=== PATIENT | male | born 1955 | race Caucasian/White ===

== ENCOUNTER 2019-03-18 08:16 | Inpatient (IN) | payer MEDICARE, SELFPAY ==
[2019-03-03 08:43] VITALS: BMI 31.1
[2019-03-18] VITALS (11 sets, daily range): BP systolic 109–148; BP diastolic 66–95; PULSE 69–80; RESP 12–18; TEMP 36.1–36.7; O2SAT 92–98; BMI 31.1
--- NOTE | 2019-03-18 | DI.RAD.S_ITS ---
PROCEDURE: XR PELVIS 1-2V INDICATIONS: INNER OP PICTURE WITH NON FINAL HARDWARE TECHNIQUE: Intra-operative view of the pelvis and hip acquired. COMPARISON: [facility] [place], CR, XR PELVIS WITH BILATERAL LATERAL HIPS, 01/03/2019, 10:19. FINDINGS: Bones: Intraoperative devices prior to placement of arthroplasty prostheses are in expected positions. No fractures or suspicious bony lesions. Note is made of a right hip prosthesis. Soft tissues: Overlying surgical retractors are present, along with other intraoperative changes. IMPRESSION: Left hip arthroplasty. Dictated by: Lizet Damon M.D. on 03/18/2019 at 16:59 Approved by: Lizet Damon M.D. on 03/18/2019 at 17:00
--- NOTE | 2019-03-18 06:00 | DI.RAD.S_ITS ---
PROCEDURE: XR HIP W PEL IF DONE LT 2V INDICATIONS: post op films TECHNIQUE: AP pelvis and lateral view of the left hip acquired. COMPARISON: [facility] [place], CR, XR PELVIS WITH BILATERAL LATERAL HIPS, 01/03/2019, 10:19. [facility], CR, XR PELVIS 1-2V, 03/18/2019, 11:55. FINDINGS: Bones: Patient is status post left hip arthroplasty, with hardware components in expected positions. The hip joint appears congruent. The visualized bony structures appear intact. Previous right hip arthroplasty is stable in appearance. Soft tissues: Overlying postoperative changes are noted. No suspicious soft tissue densities. IMPRESSION: New left hip arthroplasty as above. Stable previous right hip arthroplasty. Dictated by: Antionette Lazaro M.D. on 03/18/2019 at 16:27 Approved by: Antionette Lazaro M.D. on 03/18/2019 at 16:28
[2019-03-18] MEDS: ACETAMINOPHEN 325 MG TABLET 975 MG PO ×2 (09:00→20:52)
[2019-03-18] MEDS: PREGABALIN 75 MG CAPSULE PO (09:01)
[2019-03-18] MEDS: CELECOXIB 200 MG CAPSULE PO (09:01)
[2019-03-18] MEDS: VANCOMYCIN 1,000 MG/200 ML FROZ.PIGGY 200 MG IV (09:10)
--- NOTE | 2019-03-18 09:53 | PM.PREOP ---
Pre-operative Note Interval Note History & Physical reviewed/Exam performed by Physician: Yes Changes to H&P: No
--- NOTE | 2019-03-18 10:01 | P.OP_ITS ---
Operative Date/Time/Diagnoses Date of procedure: 03/18/19 Time of procedure: 10:45 Pre-op diagnosis: Left hip osteoarthritis with avascular necrosis Post-op diagnosis: same Procedure & Clinicians Procedure: Left total hip arthroplasty Same procedure as scheduled: Yes Indications: The patient has had progressively worsening left hip pain with radiographic changes consistent with arthritis. Non-operative management has failed and the patient has requested total hip replacement. The risks, benefits and alternatives to surgery were discussed with the patient prior to proceeding. Risks discussed included, but were not limited to, failure to relieve pain, leg length discrepancy, dislocation, stiffness, infection, nerve damage, deep venous thrombosis, pulmonary embolism, stroke, coma, heart attack, permanent paralysis and , as well as the potential need for eventual revision of the prosthetic. Surgeon: Tracy Barrientos Principal Solutions Architect: Indy Villa Anesthesia Type: General and Spinal Operative Notes Findings: Severe left hip osteoarthritis with marked avascular necrosis and softening of the acetabulum, adequate stability Closure Type: primary Specimen(s): none sent Prosthetic devices, grafts, tissues, transplants, or devices: Barrientos [employer] Nephew anthology size 7 standard offset, R3 52 cup,52 by 36, +0 Applied: drain(s) Estimated Blood Loss (mL): 250 Blood products transfused: none Procedure in detail: The patient was seen in the pre-operative area, where the patient identified the left hip as the operative site and this was marked with my initials. The patient received pre-operative antibiotics and was taken to the operating room and placed on the operative table in the right lateral decubitus position after satisfactory anesthesia. A aircraft time clerk out was performed. The left leg was prepared from the ankle to the iliac crest with ChloroPrep in the usual fashion and draped through sterile drapes. The hip was approached through an approximately 20 cm incision centered over the greater trochanter and curving gently posteriorly as it went proximally. This was carried sharply to the fascia tashi, which was divided and retracted with a self retaining retractor. The trochanteric bursa was excised with care being taken to avoid the sciatic nerve, which was identified and protected throughout the case. The short external rotators were incised and the capsulomuscular flap was raised and tagged for later repair. The hip was dislocated, and a femoral neck osteotomy performed approximately 15 mm above the lesser trochanter. Retractors were placed around the femur. The canal was opened with a box cutting osteotome, followed by a T handled reamer and a lateralizing reamer. The chili pepper broach was then used, followed by sequential broaching until there was good stability of the broach in the femur. Retractors were placed to expose the acetabulum. The labrum and central soft tissues were removed. Reaming was performed initially going up in 2 mm incr ements, then 1 mm increments until good bite was obtained with an odd sized reamer. The cup 1 mm larger than the last reamer was then inserted using the appropriate anteversion guides. A trial neutral liner was placed. The broach was placed in the canal. A trial head and neck were then placed and the hip relocated and checked for leg length and stability. An intraoperative film confirmed the component position and no evidence of fracture. The patient was stable in the position of sleep, of squatting, and could be put through a range of motion with 45 degrees internal rotation without dislocation. At 90 degrees flexion, internal rotation to 70 was possible before dislocation. This was felt to be satisfactory and the appropriate components were opened, and the trials were removed. The acetabular liner was impacted into position. The final stem was then impacted into the prepared femoral canal. A brief Betadine soak was performed while trialing with head options. The hip was meticulously irrigated with normal saline. Finally the femoral head was impacted onto the stem. The acetabulum was cleared of all material and the hip relocated one final time. The capsulomuscular flap was then repaired to the greater trochanter though an awl hole using the tag sutures. The short external rotators were repaired with a nonabsorbable polyester. A deep drain was placed and brought out anteriorly. The fascia tashi was closed with Vicryl. The subcutaneous layer was closed with barbed sutures and SteriStrips. An Aquacel Ag dressing was applied and the patient was taken to recovery having tolerated the procedure well. Complications: none Condition: stable Disposition: Acute Care Plan for aftercare: The patient will be maintained on a standard total hip replacement protocol with weight bearing as tolerated and posterior hip precautions. The patient will receive Aspirin and sequential compression devices for DVT prophylaxis. The patient will be discharged home when safe for the home environment.
[2019-03-18] MEDS: LACTATED RINGERS 1,000 ML 42 ML IV ×2 (10:03→12:43)
[2019-03-18] MEDS: CLINDAMYCIN 900 MG/50 ML PIGGYBACK 50 MG IV (10:30)
[2019-03-18] MEDS: TRANEXAMIC ACID 1,000 MG VIAL 1000 MG INJ ×2 (10:45→12:20)
--- NOTE | 2019-03-18 11:08 | SUR.OPER ---
Lateral on padded OR bed. Gel axillary roll. Arms secured on padded armboard with pillow supporting top arm. Padded hip positioner braces x4 - anterior and posterior chest and pelvis. Additional gel pad used anterior pelvis. Gel pad under bottom leg from knee to foot and secured with tape over sheet.
[2019-03-18] MEDS: BUPIVACAINE LIPOSOME 266 MG/20 ML VIAL INJ (11:14)
[2019-03-18] MEDS: BUPIVACAINE 0.5% W/ EPI (PF) VIAL 30 ML INJ (11:15)
[2019-03-18] MEDS: POVIDONE-IODINE 15 ML, SODIUM CHLORIDE 0.9% 250 ML TOP (11:16)
--- NOTE | 2019-03-18 14:20 | PT.IIE ---
Current Diagnoses Unilateral primary osteoarthritis, left hip (03/18/19) Surgery Performed Operation Date: 03/18/19 10:30 Actual Procedures p Total Hip Arthroplasty-Posterior(Left) - Tracy Barrientos MD Surgical History (Last Updated 03/03/19 @ 08:49 by Deisy Lee RN) History of lumbar fusion (Acute 08/15/16) History of total right hip arthroplasty (Acute) Hx of arthroscopy of right knee (Acute) Hx of tonsillectomy (Acute) Medical History (Last Updated 03/03/19 @ 09:18 by Deisy Lee RN) Arthritis (Acute) Back pain (Acute) Bilateral hip pain (Acute) Former smoker (Acute) GERD (gastroesophageal reflux disease) (Acute) HLD (hyperlipidemia) (Acute) HTN (hypertension) (Acute) Kidney stone (Acute) Osteoarthritis (Acute) Right knee pain (Acute) Sciatica (Acute) Physical Therapy Inpatient Evaluation/Re-Eval M1 PT/OT-IP Prior Functional Status Start: 03/18/19 16:51 Freq: NEEDED Status: Active Protocol: Document 03/18/19 14:20 AB (Rec: 03/18/19 17:12 AB [id number]) Medical Review Prior Functional Status Medical History Reviewed Yes Communication able to make needs known Mobility and Gait pt stated that he is mod I with all mobilities and ambulation using SPC indoors/ outdoors Social History Household Members none Living Arrangements RV Number of Floors (Floors) One Floor Number of Stairs To Enter/Railing? pt will stay at his son's house: information taken is regarding son's home set up has 3 steps to enter with R rail ascending Home Environment Standard Height Toilet Walk in Shower Home Equipment Front Wheel Walker Straight Cane Hand Held Shower Additional Social History Comment pt will stay at son's house and his son or his son's fiance will assist pt. toilet has a safety frame M2 PT-IP Current Condition Start: 03/18/19 16:51 Freq: NEEDED Status: Active Protocol: Document 03/18/19 14:20 AB (Rec: 03/18/19 17:12 AB [id number]) Physical Therapy Current Condition Current Condition Evaluation Date 03/18/19 Treatment Diagnosis s/p L GENE posterior approach; difficulty in walking Onset Date 03/18/19 Precautions Posterior Hip Precautions No Hip Flexion > 90 degrees No Hip Internal Rotation No Hip Adduction Weight Bearing Status Weight Bearing Status Weight Bear as Tolerated M3 PT-IP Subjective Start: 03/18/19 16:51 Freq: NEEDED Status: Active Protocol: Document 03/18/19 14:20 AB (Rec: 03/18/19 17:12 AB [id number]) Subjective Physical Therapy Visit Type Type Initial Evaluation Visit Start Time 14:20 Visit Stop Time 14:59 Total Visit Minutes 39 Number of BUSINESS PLANNING MANAGER Visits 0 Physical Therapy Visit Comments Patient Comments pt agreeable to do PT Therapy Pain Assessment Pain Present Pain Present Denied Pain M4 PT-IP Mobility and Gait Start: 03/18/19 16:51 Freq: NEEDED Status: Active Protocol: Document 03/18/19 14:20 AB (Rec: 03/18/19 17:12 AB [id number]) PT-Bed Mobility Assessment Supine to Sit Supine to Sit Standby Assistance Sit to Supine Sit to Supine Standby Assistance PT-Transfer Assessment Sit to and From Stand Sit to and from Stand Contact Guard Assistance Equipment Transfer Assistive Device Gait Belt Front Wheeled Walker Orthotic/Prosthetic Devices or Brace: No Gait Assessment Gait Gait Assistance Required: Contact Guard Assist Distance (Feet) 10 Able to Maintain Weight Bearing Status Yes During Gait Assistive Devices Assistive Device Gait Belt Front Wheeled Walker Orthotic/Prosthetic Devices or Brace: No Gait Deviations General Gait Pattern Antalgic Decreased Stride Length Decreased Feet Clearance Factors Limiting Gait Function Factors Limiting Gait Function Decreased Activity Tolerance Decreased Strength Poor Balance Comments Gait Comments c/o dizziness: BP 109/69 PT-Balance Assessment Sitting Balance and Reactions Static Sitting Balance Ability Good Dynamic Sitting Balance Ability Good Standing Balance and Reactions Static Standing Balance Ability Fair Dynamic Standing Balance Ability Fair Device Used FWW M5 PT-IP Objective Assessments Start: 03/18/19 16:51 Freq: NEEDED Status: Active Protocol: Document 03/18/19 14:20 AB (Rec: 03/18/19 17:12 AB [id number]) Orientation Orientation/Cognition Level of Alertness Alert Orientation Name Age Place Situation Language Function Ability No Deficits Noted Safety Awareness Understands Safety Issues Memory Description Short Term Impaired Gross Range of Motion Lower Extremity ROM Assessment Within Functional Limits Strength Lower Extremity Strength Assessment Left Impaired Hip 3+/5 Knee 3+/5 Sensation Assessment Sensation Gross Sensation Right LE Impaired Sensation Description Numbness Muscle Tone Muscle Tone WNL Yes M6 PT-IP Treatment Start: 03/18/19 16:51 Freq: NEEDED Status: Active Protocol: Document 03/18/19 14:20 AB (Rec: 03/18/19 17:12 AB [id number]) Physical Therapy Treatment Education Education Provided Precautions Weight Bearing Status Post-Op Packet Safety M7 PT-IP Assessment and Plan Start: 03/18/19 16:51 Freq: NEEDED Status: Active Protocol: Document 03/18/19 14:20 AB (Rec: 03/18/19 17:12 AB [id number]) PT Summary Assessment and Plan Potential Rehabilitation Potential Good Status of Condition at Evaluation Stable Summary Impairments Pain ROM Strength Balance Coordination Sensation Tone Cognition Bed Mobility Transfers Gait Activity Tolerance Assessment Summary pt requiring CGA with mobility . unable to do much ambulation due to lightheadedness/dizziness but able to walk ~ 10 ft in room. pt also still has decrease sensation on LLE. pt plans to go home to his son's house. pt stated that he is set up for outpt PT. Goals Bed Mobility Goal Independent Transfer Goal Independent Front Wheeled Walker Gait Goal Independent Front Wheel Walker Gait Distance 200 Other Goals up/down 3 steps with R rail ascending Days to Meet Goals 3 Frequency of Treatment Frequency Of Treatment Twice a Day Treatment Plan Physical Therapy Treatment Plan Bed Mobility Training Transfer Training Gait Training Therapeutic Exercise Balance Retraining Post Op Education Discharge Planning Hot or Cold Pack Neuromuscular Re-ed Coordination Retraining Manual Therapy Other Recommendations and Next Treatment ambulation, stair climbing Focus Recommendations To Nursing Amount of Assist Needed 1 Person Assist Discharge Recommendations PT Discharge Recommendations Home with Assistance Outpatient PT
[2019-03-18] MEDS: LACTATED RINGERS 1,000 ML 125 ML IV ×2 (14:21→20:59)
--- NOTE | 2019-03-18 15:36 | PC.NURSE ---
Post-op: Late entry Arrived to room 216 at 1345. Wide awake and alert, oriented X3. Denied pain, and is beginning to get feeling and movement back to BLE's. Strong pedal pulses, feet warm and pink, cap refill <2 sec. Dressing to L hip C/D/I. Hemovac patent to compression w/ scant sanguinous drainage. IVF per orders, site in R hand WNL. Oriented to room and call light, encouraged to make needs known. Fall precautions in place.
--- NOTE | 2019-03-18 16:47 | PC.NURSE ---
Addendum entered by Jennifer Ramos R.N. 03/18/19 21:52: Pt ambulated in hallway w/staff w/o incidence. Dsg CDI. IVF continue as per orders. Denies any discomfort. Satisfactory post op course. Call light w/in reach/ bed alarm on for pt safety. Continue with plan of care. Original Note: Pt awake, visiting. Denies any discomfort. Lungs clear, SpO2 98% RA. IV LR @ 125cc/hr infusing via pump into right hand w/o incidence. Left hip dsg CDI, ice applied. Call light w/in reach, bed alarm on for pt safety.
[2019-03-18] MEDS: ATENOLOL 50 MG TABLET PO (20:53)
[2019-03-18] MEDS: ASPIRIN EC 81 MG TABLET PO (20:53)
[2019-03-18] MEDS: MELOXICAM 7.5 MG TABLET 15 MG PO (20:54)
[2019-03-18] MEDS: PANTOPRAZOLE 20 MG TABLET PO (20:55)
[2019-03-18] MEDS: LOVASTATIN 20 MG TABLET PO (21:02)
[2019-03-19] VITALS: BP 113/75; PULSE 71; RESP 16; TEMP 36.6; O2SAT 96
[2019-03-19 04:38] VITALS: BP 128/78; PULSE 69; RESP 16; TEMP 36.6; O2SAT 97
[2019-03-19] MEDS: LACTATED RINGERS 1,000 ML 125 ML IV (05:51)
[2019-03-19 06:02] LABS: Hematocrit 37.6 % (41-53); Hemoglobin 12.9 g/dL (13.5-17.5)
[2019-03-19 08:58] VITALS: BP 115/62; PULSE 71; RESP 18; TEMP 36.6; O2SAT 94
--- NOTE | 2019-03-19 09:11 | P.DS_ITS ---
History of Present Illness Date Patient Seen: 03/19/19 Time Patient Seen: 09:14 Chief complaint: 45101 Left Total Hip Athroplasty Narrative: Patient is a 63 year old male who is POD#1 s/p left total hip arthroplasty. His pain has been well controlled. He had some difficulty with urination overnight but has since voided independently multiple times. He is mobilizing well. He denies any chest pain, shortness of breath, or calf tenderness. Discharge Providers Date of admission: 03/18/19 08:16 Discharge Date: 03/19/19 Primary care physician: Clyde Balderas MD Consults: 03/18/19 06:00 Consult to Anesthesiology Routine Comment: Consulting Provider: Anesthesiologist Reason for consultation: Regional block for post operative pain control 03/18/19 13:48 Consult to Discharge Planning Routine Comment: Consult to Physical Therapy Evaluate & Treat Comment: Physician Instructions: post op GENE protocol Consult to Respiratory Therapy Evaluate & Treat Comment: Physician Instructions: Evaluate and treat Discharge provider: Ashley Sheehan PA-C Summary Discharge Diagnosis: s/p left total hip arthroplasty Hospital Course: The patient has had progressively worsening left hip pain with radiographic changes consistent with arthritis. Non-operative management has failed and the patient has requested total hip replacement. The risks, benefits and alternatives to surgery were discussed with the patient prior to proceeding. Risks discussed included, but were not limited to, failure to relieve pain, leg length discrepancy, dislocation, stiffness, infection, nerve damage, deep venous thrombosis, pulmonary embolism, stroke, coma, heart attack, permanent paralysis and , as well as the potential need for eventual revision of the prosthetic. After informed consent was obtained patient was taken to the operating room 03/18 for left total hip arthroplasty which he tolerated well without complications. He has since been progressing well. He has been mobilizing about the room and w ith PT. He is voiding independently. He has a good supply of all of his medications at home except for Vistaril which was prescribed at discharge. He has good support system at home and son will be his caregiver. Status at Discharge Cognitive/behavioral status at discharge: oriented Functional status at discharge: uses cane/walker Overall status at discharge: patient is progressing back to baseline Exam Vital Signs (past 8 hours): - 03/19/19 04:38 03/19/19 08:58 Temperature 97.9 F 97.8 F Pulse Rate 69 71 Respiratory Rate 16 18 Blood Pressure 128/78 115/62 Pulse Oximetry 97 94 Oxygen Delivery Method Room Air Oxygen Flow Rate 0 Narrative Exam Narrative: Pleasant 63 year old male resting comfortably in bed, in no acute distress. Alert and oriented. Dressing in place over left hip is clean, dry, and intact. Able to actively dorsiflex/plantar flex the foot. Sensation intact in distal extremity with 2+ distal pulses. Objective Labs Result Diagrams: 03/19/19 05:07 Labs: Laboratory Results - last 24 hr 03/19/19 05:07 Hgb 12.9 L Hct 37.6 L Discharge Plan Discharge Plan Patient Disposition: Home Discharge comment: Home after PT today Discharge Med Rec/Prescriptions Prescriptions: New acetaminophen 325 mg Tablet 975 mg PO TID Qty: 60 RF: 0 aspirin 81 mg Tablet,Delayed Release (Dr/Ec) 81 mg PO BID Qty: 60 RF: 0 docusate sodium 100 mg Capsule 100 mg PO BID Qty: 60 RF: 0 hydroxyzine HCl 25 mg tablet 25 mg PO QID PRN (Reason: spasms) Qty: 40 RF: 0 Continued triamterene-hydrochlorothiazid 75 MG/50 MG tablet 0.5 tab PO QAM Qty: 0 RF: 0 meloxicam [Mobic] 7.5 MG tablet 2 tab PO HS Qty: 0 RF: 0 omeprazole 20 mg Capsule,Delayed Release(Dr/Ec) 20 mg PO BEDTIME RF: 0 lovastatin 20 mg Tablet 20 mg PO BEDTIME RF: 0 atenolol 50 mg Tablet 50 mg PO BEDTIME RF: 0 oxycodone 5 MG tablet 5 mg PO Q3HP PRN (Reason: Pain) RF: 0 Discontinued aspirin 81 mg Tablet,Delayed Release (Dr/Ec) 81 mg PO DAILY RF: 0 Follow up/Referrals: Tracy Barrientos MD [Physician] - Provider Discharge Instructions Diet: Diet as Tolerated and Regular Activity: Weight bear as tolerated. Posterior hip precautions. Cold/Heat Therapy: Ice packs as needed. Other treatments: Follow [employer] guide. Skin/Wound/Dressing Care Report to your healthcare provider any signs of infection, such as:: chills, fever, night sweats, increased pain and unusual drainage Dressing: Leave dressing in place, will be removed at 2 week post op visit. Visit Report/Discharge Packet Instructions: DI for Hip Replacement Visit Report Forms: Stroke Signs & Symptoms Discharge Data Primary Care Provider: Clyde Balderas V Attending Provider: Tracy Barrientos Admit Date/Time: 03/18/19 08:16 Quality VTE Deep Vein Thrombosis/Pulmonary Embolism Present on Admission: No
[2019-03-19] MEDS: OXYCODONE IR 5 MG TABLET PO ×2 (09:24→14:44)
[2019-03-19] MEDS: VANCOMYCIN 1,000 MG/200 ML FROZ.PIGGY 200 MG IV (09:24)
[2019-03-19] MEDS: ASPIRIN EC 81 MG TABLET PO (09:26)
[2019-03-19] MEDS: ACETAMINOPHEN 325 MG TABLET 975 MG PO ×2 (09:26→14:44)
[2019-03-19] MEDS: TRIAMTERENE/HCTZ 37.5/25 TABLET 0.5 CAP PO (09:26)
[2019-03-19 12:05] VITALS: BP 121/68; PULSE 78; RESP 16; TEMP 36.6; O2SAT 95
--- NOTE | 2019-03-19 12:22 | PT.IPTN ---
Current Diagnoses Unilateral primary osteoarthritis, left hip (03/18/19) Surgery Performed Operation Date: 03/18/19 10:30 Actual Procedures p Total Hip Arthroplasty-Posterior(Left) - Tracy Barrientos MD Physical Therapy Treatment Note M2 PT-IP Current Condition Start: 03/18/19 16:51 Freq: NEEDED Status: Active Protocol: Document 03/18/19 14:20 AB (Rec: 03/18/19 17:12 AB [id number]) Physical Therapy Current Condition Current Condition Evaluation Date 03/18/19 Treatment Diagnosis s/p L GENE posterior approach; difficulty in walking Onset Date 03/18/19 Precautions Posterior Hip Precautions No Hip Flexion > 90 degrees No Hip Internal Rotation No Hip Adduction Weight Bearing Status Weight Bearing Status Weight Bear as Tolerated M3 PT-IP Subjective Start: 03/18/19 16:51 Freq: NEEDED Status: Active Protocol: Document 03/19/19 10:35 CLB (Rec: 03/19/19 12:22 CLB [id number]) Subjective Physical Therapy Visit Type Type Treatment Note Visit Start Time 10:35 Visit Stop Time 11:05 Total Visit Minutes 30 Number of NUCLEAR PROCESS ENGINEER Visits 1 Physical Therapy Visit Comments Patient Comments pt agreeable to do PT Therapy Pain Assessment Pain Present Pain Present Pain Reported Location Left Hip Intensity 3 Scale Used Numeric (1 - 10) M4 PT-IP Mobility and Gait Start: 03/18/19 16:51 Freq: NEEDED Status: Active Protocol: Document 03/19/19 10:35 CLB (Rec: 03/19/19 12:22 CLB [id number]) PT-Bed Mobility Assessment Sit to Supine Sit to Supine Standby Assistance PT-Transfer Assessment Sit to and From Stand Sit to and from Stand Contact Guard Assistance Equipment Transfer Assistive Device Gait Belt Front Wheeled Walker Orthotic/Prosthetic Devices or Brace: No Transfers Transfer Destination Bed Transfer Technique Stand Step Pivot Transfer Ability Level of Assist Standby Assistance Gait Assessment Gait Gait Assistance Required: Standby Assistance Distance (Feet) 300 Able to Maintain Weight Bearing Status Yes During Gait Assistive Devices Assistive Device Gait Belt Front Wheeled Walker Orthotic/Prosthetic Devices or Brace: No Gait Deviations General Gait Pattern Antalgic Factors Limiting Gait Function Factors Limiting Gait Function Decreased Activity Tolerance Decreased Strength Comments Gait Comments Pt ambulated to stairs ~150ft then ambulated back to room. Pt had no c/o dizziness. Stair Climbing Assessment Evaluation Level of Assist On Stairs Standby Assistance Contact Guard Assistance Devices Stair Climbing Assistive Devices Front Wheel Walker Right Railing Technique/Endurance Stair Climbing Direction Ascend and Descend Stair Climbing Technique Step to Step Number of Steps Climbed 3 Query Text: Stair Climbing Set # Repetitions (reps) 1 Comments Stair Climbing Comments Pt successfully climbed stairs . M5 PT-IP Objective Assessments Start: 03/18/19 16:51 Freq: NEEDED Status: Active Protocol: Document 03/18/19 14:20 AB (Rec: 03/18/19 17:12 AB [id number]) Orientation Orientation/Cognition Level of Alertness Alert Orientation Name Age Place Situation Language Function Ability No Deficits Noted Safety Awareness Understands Safety Issues Memory Description Short Term Impaired Gross Range of Motion Lower Extremity ROM Assessment Within Functional Limits Strength Lower Extremity Strength Assessment Left Impaired Hip 3+/5 Knee 3+/5 Sensation Assessment Sensation Gross Sensation Right LE Impaired Sensation Description Numbness Muscle Tone Muscle Tone WNL Yes M6 PT-IP Treatment Start: 03/18/19 16:51 Freq: NEEDED Status: Active Protocol: Document 03/19/19 10:35 CLB (Rec: 03/19/19 12:22 CLB [id number]) Physical Therapy Treatment Exercises Exercises Quad Sets Heel Slides Supine Hip Abduction Education Education Provided Precautions M7 PT-IP Assessment and Plan Start: 03/18/19 16:51 Freq: NEEDED Status: Active Protocol: Document 03/19/19 10:35 CLB (Rec: 03/19/19 12:22 CLB [id number]) PT Summary Assessment and Plan Summary Impairments Pain ROM Strength Balance Coordination Sensation Tone Cognition Bed Mobility Transfers Gait Activity Tolerance Assessment Summary Pt ambulated ~300ft SBA, successfully climbed stairs safely, recalled 3/3 precautions and was able to perform all hip exercises with Min A of hip abduction. Pt plans on d/c to sons home for assist. Pt seems able to d/c home to son's house for assist when medically stable. Goals Bed Mobility Goal Independent Transfer Goal Independent Front Wheeled Walker Gait Goal Independent Front Wheel Walker Gait Distance 200 Other Goals up/down 3 steps with R rail ascending Days to Meet Goals 3 Frequency of Treatment Frequency Of Treatment Twice a Day Treatment Plan Physical Therapy Treatment Plan Bed Mobility Training Transfer Training Gait Training Therapeutic Exercise Balance Retraining Post Op Education Discharge Planning Hot or Cold Pack Neuromuscular Re-ed Coordination Retraining Manual Therapy Other Recommendations and Next Treatment ambulation, ther ex. Focus Recommendations To Nursing Amount of Assist Needed 1 Person Assist Discharge Recommendations PT Discharge Recommendations Home with Assistance Outpatient PT
--- NOTE | 2019-03-19 14:59 | PC.NURSE ---
Day Shift Note: Patient doing well this shift. Pain control effective with percolone. Patient able to discharge at this time. Awaiting ride at 1700. IV dc'd, hemovac out. Patient ambulated with PT and did stairs without dizziness. Will continue to monitor.
--- NOTE | 2019-03-19 17:02 | PC.NURSE ---
pt alert and oriented. pain 01/26. LS: clear. no n/v. 1pa/walker. discharge packet reviewed with patient. pt escorted by neurosurgical physician assistant to ER exit.
--- NOTE | 2019-03-20 08:56 | CM.IDA ---
Late Entry: Pt is a 63 yo male, resident of [place]. Pt DC on 03.19.19, inpt, POD#1 from left hip surgery with Dr Barrientos. PCP: Dr Balderas Payer: [employer] Medicare Pt discussed in multidisciplinary rounds Sunday morning, no barriers indicated to safe return home as she had planned. Therapy evals were done and pt was cleared to return home w/assist and outpt PT. SUMAN Thao
== END 2019-03-19 16:59 | disposition home or self-care (01) | DRG 470 ==
PROVIDERS: Admitting Provider Orthopaedic Surgery; Family Provider Internal Medicine; PCP Internal Medicine; Visit Provider Orthopaedic Surgery
PROC: 0SRB0JZ Replacement of Left Hip Joint with Synthetic Substitute, Open Approach (ICD-10-PCS; CPT 27130; principal; 2019-03-18 10:30)
DX: M16.12 Unilateral primary osteoarthritis, left hip (principal); M87.88 Other osteonecrosis, other site; I10 Essential (primary) hypertension; K21.9 Gastro-esophageal reflux disease without esophagitis; Z96.641 Presence of right artificial hip joint; G89.4 Chronic pain syndrome; E78.2 Mixed hyperlipidemia; Z87.891 Personal history of nicotine dependence
CPT/HCPCS: 36415; 72170; 73502; 85014; 85018; 94762; 97110; 97116; 97161; 97530; C1776; C9290; J1100; J2250; J2274; J2405; J2704; J3010; J3370

== ENCOUNTER → 2019-12-04 13:11 | Outpatient (CLI) | payer MEDICARE, SELFPAY ==
[2019-03-18 13:49] VITALS: BMI 31.1
[2019-12-04 13:21] LABS: Bacteria Urine None Seen; RBC Urine None Seen (0-5/HPF)
[2019-12-04 13:50] LABS: Appearance Urine UA CLEAR; Bilirubin Urine UA NEGATIVE (NEGATIVE); Color Urine UA YELLOW; Glucose Urine UA NEGATIVE (Negative); Ketones Urine UA NEGATIVE (NEGATIVE); Leukocyte Esterase Urine UA NEGATIVE (NEGATIVE); Nitrite Urine UA NEGATIVE (Negative); Occult Blood Urine UA NEGATIVE (Negative); Protein Urine UA NEGATIVE (Negative); Urobilinogen Urine UA 0.2 E.U./dL (0.2)
[2019-12-04 14:00] LABS: Add Manual Diff / Slide Review NO; Basophils Absolute Auto 100 /uL (0-100); Basophils Percent Auto 0.5 % (0-2); Eosinophils Absolute Auto 100 /uL (0-450); Eosinophils Percent Auto 1.1 % (2-4); Hematocrit 47.2 % (41-53); Hemoglobin 16.1 g/dL (13.5-17.5); Lymphocytes Absolute Auto 2500 /uL (1100-4500); Lymphocytes Percent Auto 24.4 % (25-40); Mean Corpuscular HGB Conc 34.2 % (30-36); Mean Corpuscular Hemoglobin 32.3 PG (26-34); Mean Corpuscular Volume 94.4 fL (80-100); Monocytes Absolute Auto 700 /uL (0-900); Neutrophils Absolute Auto 6700 /uL (1500-7000); Platelet Count 275 X10^3/uL (150-400); Red Cell Distribution Width 13.1 % (11.6-14.8)
[2019-12-04 14:04] LABS: Amorphous Sediment Urine 1+; Culture Indicated Urine Cult Not Indicated; Squamous Epithelial Cell Urine 1-5 /HPF (0-5/HPF); WBC Urine 0-1/HPF (0-5/HPF)
[2019-12-04 14:09] LABS: Hemoglobin A1C% w Est Avg Glu 5.2 % (4.0-6.0)
[2019-12-04 14:15] LABS: BUN Creatinine Ratio 21.1 (6-22); Blood Urea Nitrogen 19 mg/dL (9-20); Calcium 10.1 mg/dL (8.4-10.2); Carbon Dioxide 26 mmol/L (22-32); Chloride 100 mmol/L (98-107); Estimated Glomerular Filt Rate > 60.0 mL/min (>60); Glucose 114 mg/dL (80-110); HEMOLYSIS < 15 (0-50); Potassium 3.6 mmol/L (3.4-5.1); Sodium 138 mmol/L (137-145)
== END ==
PROVIDERS: PCP Internal Medicine; Visit Provider Internal Medicine
DX: Z01.818 Encounter for other preprocedural examination (principal)
CPT/HCPCS: 36415; 80048; 81001; 83036; 85025

== ENCOUNTER 2019-12-10 10:12 | Day surgery (SDC) | payer MEDICARE, SELFPAY ==
[2019-03-18 13:49] VITALS: BMI 31.1
[2019-12-10] VITALS (7 sets, daily range): BP systolic 102–140; BP diastolic 63–86; PULSE 65–84; RESP 12–16; TEMP 35.6–36.7; O2SAT 90–97; BMI 32.6
--- NOTE | 2019-12-10 | PATH_ITS ---
[facility] Accession Number: [id number] . 01 Material submitted: . PART A: colon - CECAL POLYP PART B: rectum - RECTAL POLYP . 01 Clinical history: . SCREENING COLONOSCOPY . 02 Diagnosis: A. Cecum, Polyp: Colonic mucosa with no diagnostic abnormality, consistent with polypoid redundancy. Negative for serrated lesion, dysplasia or malignancy. Additional step sections examined. . B. Rectum, Polyp: Hyperplastic polyp. V 12/12/2019 1252 Local . 02 Electronically signed: . Kai Rodriguez MD, PhD, Pathologist NPI- [id number] . 01 Gross description: . Part A: CECAL POLYP: Received in formalin is 1 fragment(s) of mcdowell, soft tissue measuring 0.4 x 0.3 x 0.2 cm submitted entirely in 1 cassette(s) Part B: RECTAL POLYP: Received in formalin is 1 fragment(s) of mcdowell, soft tissue measuring 0.3 x 0.3 x 0.2 cm submitted entirely in 1 cassette(s) /[facility] [place] 12/10/2019 2318 Local . 02 Pathologist provided ICD-10: K63.5, K62.1 . 02 CPT . [id number], [id number] Performed at: 01 [facility] [address], [place], [place] [id number] MD Lauri Baez MD Phone: [phone] Performed at: 02 [facility] [address] [place], [place] [id number] MD April Pitts MD Phone: [phone]
[2019-12-10] MEDS: SODIUM CHLORIDE 0.9% 1,000 ML 42 ML IV (10:46)
--- NOTE | 2019-12-10 11:31 | PM.HP.1 ---
History of Present Illness History of Present Illness Date Patient Seen: 12/10/19 Time Patient Seen: 11:32 Chief complaint: [id number] SCREENING COLONOSCOPY Narrative: Need for colorectal cancer screening. Last colonoscopy Patient History Medical History Arthritis (Acute) Back pain (Acute) Bilateral hip pain (Acute) Former smoker (Acute) GERD (gastroesophageal reflux disease) (Acute) HLD (hyperlipidemia) (Acute) HTN (hypertension) (Acute) Kidney stone (Acute) Osteoarthritis (Acute) Right knee pain (Acute) Sciatica (Acute) Surgical History History of lumbar fusion (Acute 08/15/16) History of total right hip arthroplasty (Acute) Hx of arthroscopy of right knee (Acute) Hx of tonsillectomy (Acute) Family & Social History Social History: household members none Tobacco & Substance use: Smoking Status Former smoker alcohol intake never Substance Use Type marijuana Meds Home Medications and Allergies Home Medications Medication Instructions Recorded Confirmed Type meloxicam [Mobic] 2 tab PO HS #0 08/03/16 03/18/19 History triamterene-hydrochlorothiazid 0.5 tab PO QAM #0 08/03/16 03/18/19 History atenolol 50 mg PO BEDTIME 03/03/19 03/18/19 History lovastatin 20 mg PO BEDTIME 03/03/19 03/18/19 History omeprazole 20 mg PO BEDTIME 03/03/19 03/18/19 History oxycodone 5 mg PO Q3HP PRN 03/03/19 03/18/19 History acetaminophen 975 mg PO TID #60 tab 03/19/19 Rx aspirin 81 mg PO BID #60 tab 03/19/19 Rx docusate sodium 100 mg PO BID #60 cap 03/19/19 Rx hydroxyzine HCl 25 mg PO QID PRN #40 tab 03/19/19 Rx Allergies Allergy/AdvReac Type Severity Reaction Status Date / Time Penicillins Allergy Mild FLUID Verified 12/10/19 10:31 REACTION A CHILD Exam Vital Signs (past 8 hours): - 12/10/19 10:34 Temperature 97.6 F Pulse Rate 84 Respiratory Rate 16 Blood Pressure 140/86 Pulse Oximetry 95 Oxygen Delivery Method Room Air Narrative Exam Narrative: Oropharynx free of lesions Chest clear to auscultation percussion Cardiac exam reveals no S3 or Assessment & Plan Assessment & Plan narrative: Need for colorectal cancer screening at a 10 year interval. Risks, benefits, alternatives have been explained.
--- NOTE | 2019-12-10 11:33 | PM.OP.ENDO ---
Operative Date/Time/Diagnoses Date of procedure: 12/10/19 Time of procedure: 11:33 Pre-op diagnosis: See indication and findings Procedure & Clinicians Study performed: Colonoscopy Same procedure as scheduled: Yes Indications: Normal risk will last colonoscopy 10 years ago Surgeon: Ziggy Lacey Procedure Notes Procedure in detail: After informed consent was obtained the patient was placed in left lateral decubitus position. The video colonoscope was introduced the rectum slowly advanced to cecum. On slow withdrawal mucosa was carefully examined. Preparation was good. The scope was removed. The patient tolerated procedure well. Blood loss none Complications none Sedation Total sedation time 31 minutes Versed 11 mg fentanyl 200 micro g IV titration Findings 1. 3 mm cecal polyp Jumbo biopsy removed completely 2. 5 mm rectal polyp Jumbo biopsy removed completely 3. Moderate sigmoid diverticulosis 4. Otherwise negative colonoscopy to cecum We'll be in touch regarding his biopsies but if they are adenomatous he'll need follow-up colonoscopy in 5 years. If neither proves to be adenomatous follow-up in 10 years.
[2019-12-10] MEDS: fentaNYL 250 MCG/5 ML INJ IV (11:49)
[2019-12-10] MEDS: MIDAZOLAM 5 MG/5 ML VIAL IV (11:49)
== END 2019-12-10 13:25 | disposition home or self-care (01) ==
PROVIDERS: PCP Internal Medicine; Visit Provider Internal Medicine Gastroenterology
PROC: 0DJD8ZZ Inspection of Lower Intestinal Tract, Via Natural or Artificial Opening Endoscopic (ICD-10-PCS; CPT 45378; principal; 2019-12-10 11:30)
DX: Z12.11 Encounter for screening for malignant neoplasm of colon (principal); Z86.010 Personal history of colon polyps; I10 Essential (primary) hypertension; E78.5 Hyperlipidemia, unspecified; K57.30 Diverticulosis of large intestine without perforation or abscess without bleeding; K63.5 Polyp of colon; K62.1 Rectal polyp
CPT/HCPCS: 45380; J2250; J3010

== ENCOUNTER 2020-01-06 08:40 | Day surgery (SDC) | payer MEDICARE, SELFPAY ==
[2019-03-18 13:49] VITALS: BMI 31.1
[2020-01-02 07:58] VITALS: BMI 33.1
[2020-01-06] VITALS (12 sets, daily range): BP systolic 89–136; BP diastolic 55–83; PULSE 61–93; RESP 11–18; TEMP 35.8–36.8; O2SAT 90–98; BMI 31.3
--- NOTE | 2020-01-06 06:00 | DI.RAD.S_ITS ---
PROCEDURE: XR KNEE RT 1TO2V INDICATIONS: post op films. TECHNIQUE: 2 view(s) of the knee acquired. COMPARISON: [facility] [place], SAVANAH, XR KNEE ARTHRITIC SERIES BI, 09/26/2019, 14:23. [facility], SAVANAH, KNEE 3V RIGHT, 04/14/2007, 12:24. FINDINGS: Bones: Patient is status post knee joint arthroplasty. Hardware components are in expected positions. Visualized bony structures are intact. Soft tissues: Overlying postoperative changes are noted. IMPRESSION: Surgical changes reflecting knee arthroplasty as above. Dictated by: Antionette Lazaro M.D. on 01/06/2020 at 14:28 Approved by: Antionette Lazaro M.D. on 01/06/2020 at 14:29
[2020-01-06] MEDS: MELOXICAM 7.5 MG TABLET 15 MG PO (09:08)
[2020-01-06] MEDS: ACETAMINOPHEN 325 MG TABLET 975 MG PO (09:09)
[2020-01-06] MEDS: PREGABALIN 75 MG CAPSULE PO (09:09)
[2020-01-06] MEDS: LACTATED RINGERS 1,000 ML 42 ML IV ×2 (09:21→11:32)
[2020-01-06] MEDS: VANCOMYCIN 1,000 MG/200 ML PIGGYBACK 200 MG IV (09:38)
--- NOTE | 2020-01-06 10:11 | P.OP_ITS ---
Operative Date/Time/Diagnoses Date of procedure: 01/06/20 Time of procedure: 10:59 Pre-op diagnosis: Severe right knee osteoarthritis Post-op diagnosis: same Procedure & Clinicians Procedure: Right total knee arthroplasty Same procedure as scheduled: Yes Indications: The patient has had progressively worsening right knee pain with radiographic changes consistent with arthritis. Non-operative management has failed and the patient has requested total knee replacement. The risks, benefits and alternatives to surgery were discussed with the patient prior to proceeding. Risks discussed included, but were not limited to, failure to relieve pain, stiffness, infection, nerve damage, deep venous thrombosis, pulmonary embolism, stroke, coma, heart attack, permanent paralysis and , as well as the potential need for eventual revision of the prosthetic. Surgeon: Tracy Barrientos Director Of Neighborhood Service Center: Marisel Higuera Anesthesia Type: General and Spinal Operative Notes Findings: Severe right knee osteoarthritis, adequate bone, good balance Closure Type: primary Specimen(s): none sent Prosthetic devices, grafts, tissues, transplants, or devices: Barrientos and Nephew Journey BCS 2 size 5 tibia, size 6 femur, +11 poly, 38 mm patella Applied: drain(s) Estimated Blood Loss (mL): 250 Blood products transfused: none Tourniquet time (min): 114 Procedure in detail: The patient was seen in the pre-operative area, where the patient identified the right knee as the operative site and this was marked with my initials. The patient received pre-operative antibiotics, and was taken to the operating room and placed on the operative table in the supine position. After satisfactory anesthesia, a quality control coordinator out was performed. The right leg was encircled with a tourniquet about the proximal thigh, and the leg was prepared from the toes to the tourniquet with ChloroPrep in the usual fashion and draped through sterile drapes. The leg was elevated and exsanguinated with Eschmark bandage and the tourniquet inflated to [250] mmHg pressure. The knee was approached through an approximately 18 cm incision centered over the patella and carried into the knee through a medial parapatellar arthrotomy. A portion of the medial and lateral meniscus was resected. Soft tissue was carefully mobilized around the patella the patella was measured with a caliper. There were massive osteophytes around the patella which were meticulously debrided. Bone was resected from the patella and the patellar height was reconstituted with up an appropriate sized patellar component. A cover was then placed on the patella. A small amount of additional medial and lateral meniscus was resected. The distal femur was cut at 5?. A [+2] cut was used. It looked like an appropriate distal femoral cut and the cut was made without difficulty. An extramedullary guide was used for the tibial cut. 11 mm was resected off the least affected side. This resulted in a minimal lateral cut which basically just skimmed the bone. The patient was placed in extension residual medial and lateral meniscus as well as any residual bone was carefully resected. 2 mm additional tibia was resected in order to slightly improve the tibial cut and provide additional space for the components. Hemostasis was achieved especially posteriorly. Additional local was injected into the posterior capsule. The exten isamar gap was assessed and additional releases for gap balancing were performed as necessary. It was checked with the gap food preparation worker. The femur was sized and rotation was spent set based on anatomic landmarks measured resection with about 4.5? of external rotation and also gap balancing. The femur was a size 6. Finishing cuts were made for a size 6 and additional posterior osteophytes were removed. The femoral component was trial was placed and the notch was finished. There was no evidence of notching. The anterior, posterior and chamfer cuts were then made. The posterior osteophytes and soft tissues were then removed. The posterior capsule was injected with part of a mixture of 60 ml 0.25% Marcaine mixed with 20 ml Exparel for post operative pain control. The remainder of this mixture was injected into the capsule and subcutaneous tissues during cement curing. The tibial and femoral components were then placed and the knee placed through a range of motion. Range of motion was [0-130], with good stability throughout the range. The trials were then removed, and the tibia was finished. There was moderate cysts in the proximal medial tibia and previously resected femoral bone and tibial bone were packed into the cyst in the tibia. The bone was prepared with pulsatile lavage, and dried with a sponge. Cement was applied and the final prosthetics placed. Excess cement was removed during and after cement curing. A brief Betadine soak was performed. After confirming there was no extruded cement posteriorly, the final tibial insert was placed. The knee was copiously irrigated and the tourniquet deflated. Hemostasis was obtained with the Bovie. A drain was placed and brought out superolaterally. The capsule was closed with interrupted nonabsorbable suture. The subcutaneous layer was closed with barbed sutures, and the skin with a running 3-0 V-Lock suture and Surgical glue. An Aquacel Ag dressing was applied and the patient was taken to recovery having tolerated the procedure well. Complications: none Post-operative Condition: stable Disposition: Acute Care Plan for aftercare: The patient will be maintained on a standard total knee replacement protocol with weight bearing as tolerated. The patient will receive aspirin and sequential compression devices for DVT prophylaxis. The patient will be discharged home when safe for the home environment.
--- NOTE | 2020-01-06 10:11 | PM.PREOP ---
Pre-operative Note Interval Note History & Physical reviewed/Exam performed by Physician: Yes Changes to H&P: No
--- NOTE | 2020-01-06 10:50 | SUR.PREOP ---
Block start time [1035] . Monitoring initiated and maintained throughout procedure. Oxygen and medications given per anesthesiologist instructions. Patient remained stable throughout procedure, no adverse reactions noted. Block end time [1048].
[2020-01-06] MEDS: CLINDAMYCIN 900 MG/50 ML PIGGYBACK 50 MG IV (10:52)
[2020-01-06] MEDS: TRANEXAMIC ACID 1,000 MG VIAL 1000 MG INJ ×2 (11:20→13:25)
--- NOTE | 2020-01-06 11:29 | SUR.OPER ---
Supine on padded OR bed. Pillow under head, arms secured on padded armboards <90 degree abduction. Safety belt across torso. Non-operative leg secured with tape over blanket over lower leg. Operative leg secured in DeMayo/James positioner. Foam padded brace at thigh of operative leg.
[2020-01-06] MEDS: BUPIVACAINE LIPOSOME 266 MG/20 ML VIAL INJ (11:33)
[2020-01-06] MEDS: SODIUM CHLORIDE IRRIG SOLUTION 250 ML, POVIDONE-IODINE SPONGE STICKS 1 APPLIC IRR (11:36)
[2020-01-06] MEDS: BUPIVACAINE 0.25% W/ EPI 30 ML VIAL INJ (11:38)
--- NOTE | 2020-01-06 11:43 | P.PCN_ITS ---
Procedures Date/Time Date of procedure: 01/06/20 Time of procedure: 10:40 General Procedure description: Ultrasound guided adductor canal nerve block for post op pain control after right knee surgery by Dr. Barrientos. Risk and benefits of proced ure discussed with patient. ASA monitoring applied to patient. O2 given via nasal cannula. 2 mg Versed and 100 mcg fentanyl given for procedural sedation. Skin site was prepped with chlorhexidine and allowed to fully dry. Sterile gloves, mask, hat and probe cover were used to maintain sterility. 2% lidocaine and 30ga needle was used to make a small skin wheal at needle insertion site. Under ultrasound guidance, a 21ga 100mm Pajunk needle was directed into the adductor canal near femoral artery and saphenous nerve at the level of mid thigh. Patient reported no parasthesias. After negative aspiration, 20 mL 0.5% ropivicaine and 10mg dexamethasone were injected around saphenous nerve. Patient tolerated procedure well.
--- NOTE | 2020-01-06 14:13 | SUR.PHASEI ---
report called to
--- NOTE | 2020-01-06 14:41 | SUR.PHASEI ---
Patient transferred to the floor with belongings bag. Awake and oriented. VS stable. IV saline locked. Rt knee dressing CDI, moving BLE. HV clamped. Report to Lawanda.
[2020-01-06] MEDS: LACTATED RINGERS 1,000 ML 125 ML IV (14:46)
--- NOTE | 2020-01-06 15:08 | PC.NURSE ---
Addendum entered by Lawanda Tse R.N. 01/06/20 15:39: Hemovac unclamped, patient denies pain, no needs at this time. Original Note: Pt to room 1415, alert,oriented, denies pain and nausea. CMS+, taking PO without difficulty.
[2020-01-06] MEDS: ACETAMINOPHEN 325 MG TABLET 650 MG PO (15:36)
--- NOTE | 2020-01-06 16:18 | PT.IIE ---
Current Diagnoses Unilateral primary osteoarthritis, right knee (01/06/20) Surgery Performed Operation Date: 01/06/20 10:45 Actual Procedures p Total Knee Arthroplasty(Right) - Tracy Barrientos MD Surgical History (Last Updated 01/02/20 @ 08:04 by Deisy Lee RN) History of lumbar fusion (Acute 08/15/16) History of total left hip arthroplasty (Acute 03/18/19) History of total right hip arthroplasty (Acute) Hx of arthroscopy of right knee (Acute) Hx of tonsillectomy (Acute) Medical History (Last Reviewed 12/10/19 @ 11:32 by Ziggy Lacey MD) Arthritis (Acute) Back pain (Acute) Bilateral hip pain (Acute) Former smoker (Acute) GERD (gastroesophageal reflux disease) (Acute) HLD (hyperlipidemia) (Acute) HTN (hypertension) (Acute) Kidney stone (Acute) Osteoarthritis (Acute) Right knee pain (Acute) Sciatica (Acute) Physical Therapy Inpatient Evaluation/Re-Eval M1 PT/OT-IP Prior Functional Status Start: 01/06/20 17:49 Freq: NEEDED Status: Active Protocol: Document 01/06/20 16:18 AB (Rec: 01/06/20 18:21 AB [email or web address]) Medical Review Prior Functional Status Medical History Reviewed Yes Communication able to make needs known Mobility and Gait pt stated that he is independent with all mobilities and ambulation without AD Social History Household Members none Living Arrangements RV Number of Stairs To Enter/Railing? pt plans to stay at his son's house upon d/c: 1 level house with 3 steps to enter with B rails Home Environment Standard Height Toilet,Walk in Shower,Tub/Shower Home Equipment Front Wheel Walker,Straight Cane,Grab Bars In Shower Additional Social History Comment son stated that there are friends who can come in to assist pt at home. Has a toilet safety frame M2 PT-IP Current Condition Start: 01/06/20 17:49 Freq: NEEDED Status: Active Protocol: Document 01/06/20 16:18 AB (Rec: 01/06/20 18:21 AB [email or web address]) Physical Therapy Current Condition Current Condition Evaluation Date 01/06/20 Treatment Diagnosis s/p R TKA; difficulty in walking Onset Date 01/06/2020 Weight Bearing Status Weight Bearing Status Weight Bear as Tolerated Allowed Weight Bearing Amount (enter % WBAT RLE or #) (%) M3 PT-IP Subjective Start: 01/06/20 17:49 Freq: NEEDED Status: Active Protocol: Document 01/06/20 16:18 AB (Rec: 01/06/20 18:21 AB [email or web address]) Subjective Physical Therapy Visit Type Type Initial Evaluation Visit Start Time 16:18 Visit Stop Time 16:56 Total Visit Minutes 38 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 of 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 Physical Therapy Visit Comments Patient Comments pt agreeable to do PT Therapy Pain Assessment Pain Present Pain Present Denied Pain M4 PT-IP Mobility and Gait Start: 01/06/20 17:49 Freq: NEEDED Status: Active Protocol: Document 01/06/20 16:18 AB (Rec: 01/06/20 18:21 AB [email or web address]) PT-Bed Mobility Assessment Supine to Sit Supine to Sit Standby Assistance Sit to Supine Sit to Supine Standby Assistance Scooting Scooting to Edge of Bed Standby Assistance Scooting Up and Down in Bed Standby Assistance PT-Transfer Assessment Sit to and From Stand Sit to and from Stand Standby Assistance Equipment Transfer Assistive Device Gait Belt,Front Wheeled Walker Orthotic/Prosthetic Devices or Brace: No Transfers Transfer Destination Chair Transfer Technique ambulated using FWW Transfer Ability Level of Assist Standby Assistance,1 Person Assistance,Use of Upper Extremities Gait Assessment Gait Gait Assistance Required: Standby Assistance Distance (Feet) 150 Able to Maintain Weight Bearing Status Yes During Gait Assistive Devices Assistive Device Gait Belt,Front Wheeled Walker Orthotic/Prosthetic Devices or Brace: No Gait Deviations General Gait Pattern Antalgic Factors Limiting Gait Function Factors Limiting Gait Function Decreased Strength,Poor Safety Awareness Stair Climbing Assessment Evaluation Level of Assist On Stairs Standby Assistance Devices Stair Climbing Assistive Devices Left Railing,Right Railing Technique/Endurance Stair Climbing Direction Ascend and Descend Stair Climbing Technique Step to Step Number of Steps Climbed 3 Query Text: Stair Climbing Set # Repetitions (reps) 1 PT-Balance Assessment Sitting Balance and Reactions Static Sitting Balance Ability Normal Dynamic Sitting Balance Ability Normal Standing Balance and Reactions Static Standing Balance Ability Good Dynamic Standing Balance Ability Fair Device Used FWW M5 PT-IP Objective Assessments Start: 01/06/20 17:49 Freq: NEEDED Status: Active Protocol: Document 01/06/20 16:18 AB (Rec: 02/18/20 18:21 AB [email or web address]) Orientation Orientation/Cognition Level of Alertness Alert Orientation Name,Age,Birthday,Month,Date, Year,Day of Week,Place, Situation Language Function Ability No Deficits Noted Safety Awareness Understands Safety Issues Memory Description No Deficits Noted Gross Range of Motion Lower Extremity ROM Assessment Within Functional Limits Impairments R knee flexion: ~ 100 deg Strength Lower Extremity Strength Assessment Right Impaired Hip 4+/5 Knee 4-/5 Coordination Assessment Gross Coordination Gross Coordination WNL Sensation Assessment Sensation Gross Sensation Right LE Impaired Sensation Description Numbness Comments Sensation Comments c/o slight numbness on R thigh Muscle Tone Muscle Tone WNL Yes M6 PT-IP Treatment Start: 01/06/20 17:49 Freq: NEEDED Status: Active Protocol: Document 01/06/20 16:18 AB (Rec: 01/06/20 18:21 AB [email or web address]) Physical Therapy Treatment Education Education Provided Precautions,Weight Bearing Status,Post-Op Packet,Safety M7 PT-IP Assessment and Plan Start: 01/06/20 17:49 Freq: NEEDED Status: Active Protocol: Document 01/06/20 16:18 AB (Rec: 01/06/20 18:21 AB [email or web address]) PT Summary Assessment and Plan Potential Rehabilitation Potential Good Status of Condition at Evaluation Stable Summary Impairments Strength,Balance,Sensation,Bed Mobility,Transfers,Gait, Activity Tolerance Assessment Summary pt requiring SBA with mobility using FWW. plans to go home and son/friends will be able to assist him. pt may go home when medically stable. Goals Bed Mobility Goal Independent Transfer Goal Independent,Front Wheeled Walker Gait Goal Independent,Front Wheel Walker Gait Distance 250 Other Goals up/down 3 steps using bilateral rails mod I Days to Meet Goals 3 Frequency of Treatment Frequency Of Treatment Twice a Day Treatment Plan Physical Therapy Treatment Plan Bed Mobility Training,Transfer Training,Gait Training, Therapeutic Exercise,Balance Retraining,Post Op Education, Discharge Planning,Hot or Cold Pack,Neuromuscular Re-ed, Coordination Retraining,Manual Therapy Other Recommendations and Next Treatment ambulation, stair climbing Focus Recommendations To Nursing Amount of Assist Needed 1 Person Assist Discharge Recommendations PT Discharge Recommendations Home with Assistance, Outpatient PT Transportation Needs at Discharge Private Vehicle
[2020-01-06] MEDS: CEFAZOLIN 2 GM/100 ML FROZ.PIGGY IV (18:18)
[2020-01-06] MEDS: IBUPROFEN 400 MG TABLET PO (18:18)
--- NOTE | 2020-01-06 19:25 | PC.NURSE ---
Pt to discharge via w/c to [facility] home. Post op knee replacement education given. Pt denies any pain. Wound vac removed. IV removed. Pt has no complaints at this time. No adverse reaction to IV abx.
== END 2020-01-06 19:30 | disposition home or self-care (01) ==
LOC: OR 08:47 → AC 08:48
PROVIDERS: PCP Internal Medicine; Referring Provider Internal Medicine; Visit Provider Orthopaedic Surgery
PROC: 0SRC0JZ Replacement of Right Knee Joint with Synthetic Substitute, Open Approach (ICD-10-PCS; CPT 27447; principal; 2020-01-06 10:45)
DX: M17.11 Unilateral primary osteoarthritis, right knee (principal)
CPT/HCPCS: 27447; 64450; 73560; 94762; 97116; 97161; C1776; C9290; J0690; J2250; J2274; J2405; J2704; J3010

== ENCOUNTER → 2021-03-09 15:23 | Outpatient (ROUT) | payer OTHER, SELFPAY ==
[2020-01-06 14:39] VITALS: BMI 31.3
[2021-03-09 15:56] LABS: Aspartate Aminotransferase 24 IU/L (17-59); BUN Creatinine Ratio 24.2 (6-22); Blood Urea Nitrogen 23 mg/dL (9-20); Calcium 9.8 mg/dL (8.4-10.2); Carbon Dioxide 28 mmol/L (22-32); Chloride 99 mmol/L (98-107); Cholesterol 148 mg/dL (140-199); Estimated Glomerular Filt Rate > 60.0 mL/min (>60); Glucose 102 mg/dL (80-110); HDL Cholesterol 37 mg/dL (40-60); HEMOLYSIS < 15 (0-50); LDL Cholesterol Calculated 80 mg/dL (<100); Sodium 136 mmol/L (137-145); Triglycerides 157 mg/dL (35-150)
[2021-03-09 16:27] LABS: Prostate Specific Antigen 0.409 ng/mL (0.10-4.00)
== END ==
PROVIDERS: PCP Internal Medicine; Visit Provider Internal Medicine
DX: I10 Essential (primary) hypertension (principal); E78.2 Mixed hyperlipidemia; N40.0 Benign prostatic hyperplasia without lower urinary tract symptoms
CPT/HCPCS: 80048; 80061; 84153; 84450

== ENCOUNTER → 2021-03-11 09:40 | Outpatient (CLI) | payer OTHER, SELFPAY ==
[2020-01-06 14:39] VITALS: BMI 31.3
[2021-03-11 12:04] LABS: HIV 1 & 2 Ab/Ag 4th Gen Combo NEGATIVE (NEGATIVE); Hep C Virus Ab w/Reflex Quant NEGATIVE s/c (NEGATIVE)
[2021-03-12 05:37] LABS: Hepatitis B Surf AB Quant <3.1 mIU/mL (Immunity>9.9)
== END ==
PROVIDERS: PCP Internal Medicine; Referring Provider Internal Medicine; Visit Provider Internal Medicine
DX: I10 Essential (primary) hypertension (principal); Z65.5 Exposure to disaster, war and other hostilities
CPT/HCPCS: 36415; 86706; 86803; 87389

== ENCOUNTER 2021-06-20 12:11 | Inpatient (IN) | payer OTHER, SELFPAY ==
[2020-01-06 14:39] VITALS: BMI 31.3
[2021-06-20] VITALS (14 sets, daily range): BP systolic 95–144; BP diastolic 61–97; PULSE 70–100; RESP 17–32; TEMP 36.1–38.2; O2SAT 84–93; BMI 32.1
[2021-06-20 12:54] LABS: Add Manual Diff / Slide Review NO; Basophils Absolute Auto 0 /uL (0-100); Eosinophils Absolute Auto 100 /uL (0-450); Eosinophils Percent Auto 0.6 % (2-4); Hemoglobin 15.8 g/dL (13.5-17.5); Lymphocytes Absolute Auto 1000 /uL (1100-4500); Lymphocytes Percent Auto 9.8 % (25-40); Mean Corpuscular HGB Conc 34.3 % (30-36); Mean Corpuscular Hemoglobin 31.2 PG (26-34); Mean Corpuscular Volume 91.1 fL (80-100); Monocytes Absolute Auto 400 /uL (0-900); Monocytes Percent Auto 4.3 % (3-14); Neutrophils Absolute Auto 8300 /uL (1500-7000); Neutrophils Percent Auto 85.3 % (50-75); Platelet Count 324 X10^3/uL (150-400); Red Blood Cell Count 5.05 X10^6/uL (4.5-5.9); Red Cell Distribution Width 14.2 % (11.6-14.8); White Blood Cell Count 9.7 X10^3/uL (4.5-11.0)
[2021-06-20 12:55] LABS: Alanine Aminotransferase 49 IU/L (<50); Albumin Globulin Ratio 0.9 (1.0-2.8); Alkaline Phosphatase 112 U/L (38-126); Aspartate Aminotransferase 87 IU/L (17-59); BUN Creatinine Ratio 24.6 (6-22); Bilirubin Total 1.4 mg/dL (0.2-1.3); Blood Urea Nitrogen 31 mg/dL (9-20); Calcium 9.8 mg/dL (8.4-10.2); Carbon Dioxide 28 mmol/L (22-32); Chloride 92 mmol/L (98-107); Estimated Glomerular Filt Rate 57.3 mL/min (>60); Globulin 4.7 g/dL (1.7-4.1); Glucose 165 mg/dL (80-110); HEMOLYSIS < 15 (0-50); Lipase 139 U/L (23-300); Potassium 3.9 mmol/L (3.4-5.1); Sodium 130 mmol/L (137-145); Total Protein 8.7 g/dL (6.3-8.2)
[2021-06-20] MEDS: SODIUM CHLORIDE 0.9% 1,000 ML 1000 ML IV (13:32)
[2021-06-20 14:14] LABS: COVID19 -Nasal RAPID POSITIVE (Negative)
--- NOTE | 2021-06-20 14:19 | DI.RAD.S_ITS ---
PROCEDURE: XR CHEST 1V INDICATIONS: Flu like symptoms TECHNIQUE: One view of the chest was acquired. COMPARISON: [facility], , CHEST 2 VIEW, 11/02/2017, 12:46. FINDINGS: Surgical changes and devices: None. Lungs and pleura: Bilateral patchy airspace opacity. No pleural effusions or pneumothorax. Mediastinum: Mediastinal contours appear normal. Heart size is normal. Bones and chest wall: No suspicious bony lesions. Overlying soft tissues appear unremarkable. IMPRESSION: Bilateral patchy airspace opacity. Suspect multifocal pneumonia. COVID-19 could have this appearance. Dictated by: Nate Sheppard M.D. on 06/20/2021 at 14:43 Approved by: Nate Sheppard M.D. on 06/20/2021 at 14:44
[2021-06-20 15:19] LABS: Lactate (Lactic Acid) 1.9 mmol/L (0.7-2.1)
[2021-06-20 15:22] LABS: Lactate Dehydrogenase 1237 U/L (313-618)
[2021-06-20 15:40] LABS: D Dimer 1734 ng/mL (<230)
--- NOTE | 2021-06-20 15:43 | ED_ITS ---
HPI - Weakness General Chief complaint: Dizziness Stated complaint: Thinks Poss Heat Stroke Time Seen by Provider: 06/20/21 15:19 Source: patient and family (son) Mode of arrival: Wheelchair Limitations: no limitations History of Present Illness HPI Narrative: This is a 65-year-old male who comes to the emergency department 1-2 generalized weakness, fatigue and feeling unwell. Patient has had some shortness of breath. He denies any chest pain or pressure. He denies any abdominal pain he denies any nausea or vomiting. Denies any diarrhea or constipation. He has all-over body aches but this is normal for the patient and he takes meloxicam daily for chronic orthopedic type pain. Patient has not had any fevers that he is aware he does have a history of hypertension, dyslipidemia as well as spinal stenosis. He does not have any prior history of cardiac stents. He is on aspirin daily, atenolol, lovastatin, meloxicam, omeprazole and triamterene/hydrochlorothiazide. Patient has had multiple orthopedic surgeries in the past but no thoracic or intra-abdominal surgeries. He has remote history of tobacco use quitting in 1992. He does not have any known COVID exposures. He is not vaccinated. He is accompanied by his son today. His primary care physician is Dr. Balderas. Related Data Home Medications Medication Instructions Recorded Confirmed meloxicam 7.5 mg tablet (Mobic) 2 tab PO HS #0 08/03/16 01/06/20 triamterene 75 0.5 tab PO QAM #0 08/03/16 01/06/20 mg-hydrochlorothiazide 50 mg tablet atenolol 50 mg tablet 50 mg PO BEDTIME 03/03/19 01/06/20 lovastatin 20 mg tablet 20 mg PO BEDTIME 03/03/19 01/06/20 omeprazole 20 mg capsule,delayed 20 mg PO BEDTIME 03/03/19 01/06/20 release oxycodone 5 mg tablet 5 mg PO Q3HP PRN 03/03/19 01/06/20 Previous Rx's Medication Instructions Recorded aspirin 81 mg tablet,delayed 81 mg PO BID #60 tab 03/19/19 release acetaminophen 325 mg tablet 650 mg PO TID #60 tab 01/06/20 Allergies Allergy/AdvReac Type Severity Reaction Status Date / Time Penicillins Allergy Mild FLUID Verified 06/20/21 12:18 REACTION A CHILD Review of Systems Review of Systems ROS Unobtainable: All systems reviewed & are unremarkable except as noted in HPI and below Patient History Medical History Arthritis Back pain Bilateral hip pain Former smoker GERD (gastroesophageal reflux disease) HLD (hyperlipidemia) HTN (hypertension) Kidney stone Osteoarthritis Right knee pain Sciatica Surgical History History of lumbar fusion (08/15/16) History of total left hip arthroplasty (03/18/19) History of total right hip arthroplasty Hx of arthroscopy of right knee Hx of tonsillectomy Social History household members: none Smoking Status: Former smoker alcohol intake: never Smoking Status: Former smoker Substance Use Type: marijuana Exam Narrative Exam Narrative: GENERAL: Alert and oriented x three, older appearing male in mild distress. HEENT: Head normocephalic, atraumatic, EOMI, pupils reactive, face symmetric, moist mucous membranes NECK: Supple, full range of motion CARDIOVASCULAR: Regular rate and rhythm without murmurs, rubs or gallops. RESPIRATORY: Breath sounds equal bilaterally, no wheezes rales or rhonchi. No tachypnea accessory muscle use. ABDOMEN: Soft, nontender. Normoactive bowel sounds all 4 quadrants. No guarding or rebound, rigidity, no mass : No CVA tenderness EXTREMITIES: Normal range of motion. NEUROLOGICAL: Cranial nerves II through XII grossly intact. Moving all extremities SKIN: Warm, dry, no petechiae, no rashes or lesions. Initial Vital Signs Initial Vital Signs: Vital Signs Temperature 97.1 F L 06/20/21 12:16 Pulse Rate 93 H 06/20/21 12:16 Respiratory Rate 18 06/20/21 12:16 Blood Pressure 106/97 H 06/20/21 12:16 Pulse Oximetry 91 06/20/21 12:16 Course Orders Ordered: ED Orders 06/20/21 12:37 Complete Blood Count AUTO DIFF Stat Comprehensive Metabolic Panel Stat Lipase Stat 06/20/21 13:01 EKG-12 Lead Stat 06/20/21 13:58 COVID19 -Nasal swab/Pre-Proc Stat 06/20/21 14:19 XR chest 1V Stat 06/20/21 14:57 Blood Culture Stat C-Reactive Protein Quant Stat D Dimer Stat Ferritin Stat Lactate (Lactic Acid) Stat Lactate Dehydrogenase Stat Procalcitonin Stat Discontinued Medications Acetaminophen (Acetaminophen 325 Mg Tablet) 650 mg PO NOW ONE Stop: 06/20/21 15:20 Sodium Chloride (Normal Saline 0.9%) 1,000 mls @ 1,000 mls/hr IV BOLUS ONE Stop: 06/20/21 14:25 Last Admin: 06/20/21 13:32 Dose: 1,000 mls/hr Documented by: BUTCH Ondansetron HCl (Ondansetron 4 Mg/2 Ml Inj) 4 mg IV NOW ONE Stop: 06/20/21 13:27 Last Admin: 06/20/21 13:48 Dose: Not Given Documented by: BUTCH Consultations Consultation #1: Dr. Banerjee accepts for admission. Discussed patient's labs D-dimer 17 30 but seems most consistent with his reaction from his COVID and bot h agree no CT angio. Plan for dexamethasone 6 mg as well as 200 mg of remdesivir. Vital Signs Vital signs: Vital Signs - 8 hr 06/20/21 12:16 06/20/21 13:39 06/20/21 14:00 Temperature 97.1 F L 100.2 F H Pulse Rate 93 H 100 H 93 H Respiratory Rate 18 21 Blood Pressure 106/97 H 141/81 H Pulse Oximetry 91 84 L 92 06/20/21 14:01 06/20/21 14:30 06/20/21 15:00 Temperature 100.2 F H 100.8 F H 100.4 F H Pulse Rate 95 H 92 H 89 Respiratory Rate 17 20 25 H Blood Pressure 108/74 112/73 Pulse Oximetry 92 91 92 MDM - Weakness Lab Data Result diagrams: 06/20/21 12:37 06/20/21 12:37 Labs: Lab Results 06/20/21 06/20/21 06/20/21 Range/Units 12:37 12:37 13:58 WBC 9.7 (4.5-11.0) X10^3/uL RBC 5.05 (4.5-5.9) X10^6/uL Hgb 15.8 (13.5-17.5) g/dL Hct 46.0 (41-53) % MCV 91.1 (80-100) fL MCH 31.2 (26-34) PG MCHC 34.3 (30-36) % RDW 14.2 (11.6-14.8) % Plt Count 324 (150-400) X10^3/uL Neut % (Auto) 85.3 H (50-75) % Lymph % (Auto) 9.8 L (25-40) % Baldwin % (Auto) 4.3 (3-14) % Eos % (Auto) 0.6 L (2-4) % Baso % (Auto) 0.0 (0-2) % Neut # (Auto) 8300 H (0903-8372) /uL Lymph # (Auto) 1000 L (7320-2363) /uL Baldwin # (Auto) 400 (0-900) /uL Eos # (Auto) 100 (0-450) /uL Baso # (Auto) 0 (0-100) /uL D-Dimer (<230) ng/mL Sodium 130 L (137-145) mmol/L Potassium 3.9 (3.4-5.1) mmol/L Chloride 92 L (98-107) mmol/L Carbon Dioxide 28 (22-32) mmol/L BUN 31 H (9-20) mg/dL Creatinine 1.26 H (0.66-1.25) mg/dL Estimated GFR 57.3 L (>60) mL/min BUN/Creatinine Ratio 24.6 H (6-22) Glucose 165 H (80-110) mg/dL Lactate (0.7-2.1) mmol/L Calcium 9.8 (8.4-10.2) mg/dL Total Bilirubin 1.4 H (0.2-1.3) mg/dL AST 87 H (17-59) IU/L ALT 49 (<50) IU/L Alkaline Phosphatase 112 (38-126) U/L Lactate Dehydrogenase (313-618) U/L Total Protein 8.7 H (6.3-8.2) g/dL Albumin 4.0 (3.5-5.0) g/dL Globulin 4.7 H (1.7-4.1) g/dL Albumin/Globulin Ratio 0.9 L (1.0-2.8) Lipase 139 (23-300) U/L Procalcitonin (<0.5) ng/mL SARS-CoV-2 (PCR) Positive H (Negative) 06/20/21 06/20/21 06/20/21 Range/Units 14:57 14:57 14:57 WBC (4.5-11.0) X10^3/uL RBC (4.5-5.9) X10^6/uL Hgb (13.5-17.5) g/dL Hct (41-53) % MCV (80-100) fL MCH (26-34) PG MCHC (30-36) % RDW (11.6-14.8) % Plt Count (150-400) X10^3/uL Neut % (Auto) (50-75) % Lymph % (Auto) (25-40) % Baldwin % (Auto) (3-14) % Eos % (Auto) (2-4) % Baso % (Auto) (0-2) % Neut # (Auto) (0154-6563) /uL Lymph # (Auto) (2055-7907) /uL Baldwin # (Auto) (0-900) /uL Eos # (Auto) (0-450) /uL Baso # (Auto) (0-100) /uL D-Dimer 1734 H (<230) ng/mL Sodium (137-145) mmol/L Potassium (3.4-5.1) mmol/L Chloride (98-107) mmol/L Carbon Dioxide (22-32) mmol/L BUN (9-20) mg/dL Creatinine (0.66-1.25) mg/dL Estimated GFR (>60) mL/min BUN/Creatinine Ratio (6-22) Glucose (80-110) mg/dL Lactate 1.9 (0.7-2.1) mmol/L Calcium (8.4-10.2) mg/dL Total Bilirubin (0.2-1.3) mg/dL AST (17-59) IU/L ALT (<50) IU/L Alkaline Phosphatase (38-126) U/L Lactate Dehydrogenase (313-618) U/L Total Protein (6.3-8.2) g/dL Albumin (3.5-5.0) g/dL Globulin (1.7-4.1) g/dL Albumin/Globulin Ratio (1.0-2.8) Lipase (23-300) U/L Procalcitonin 0.50 (<0.5) ng/mL SARS-CoV-2 (PCR) (Negative) 06/20/21 Range/Units 14:57 WBC (4.5-11.0) X10^3/uL RBC (4.5-5.9) X10^6/uL Hgb (13.5-17.5) g/dL Hct (41-53) % MCV (80-100) fL MCH (26-34) PG MCHC (30-36) % RDW (11.6-14.8) % Plt Count (150-400) X10^3/uL Neut % (Auto) (50-75) % Lymph % (Auto) (25-40) % Baldwin % (Auto) (3-14) % Eos % (Auto) (2-4) % Baso % (Auto) (0-2) % Neut # (Auto) (4819-9014) /uL Lymph # (Auto) (1511-3709) /uL Baldwin # (Auto) (0-900) /uL Eos # (Auto) (0-450) /uL Baso # (Auto) (0-100) /uL D-Dimer (<230) ng/mL Sodium (137-145) mmol/L Potassium (3.4-5.1) mmol/L Chloride (98-107) mmol/L Carbon Dioxide (22-32) mmol/L BUN (9-20) mg/dL Creatinine (0.66-1.25) mg/dL Estimated GFR (>60) mL/min BUN/Creatinine Ratio (6-22) Glucose (80-110) mg/dL Lactate (0.7-2.1) mmol/L Calcium (8.4-10.2) mg/dL Total Bilirubin (0.2-1.3) mg/dL AST (17-59) IU/L ALT (<50) IU/L Alkaline Phosphatase (38-126) U/L Lactate Dehydrogenase 1237 H (313-618) U/L Total Protein (6.3-8.2) g/dL Albumin (3.5-5.0) g/dL Globulin (1.7-4.1) g/dL Albumin/Globulin Ratio (1.0-2.8) Lipase (23-300) U/L Procalcitonin (<0.5) ng/mL SARS-CoV-2 (PCR) (Negative) Imaging Data Chest x-ray: Radiologist Impression: [address] [id number] ReportSigned Patient: Rodo Starks HMR#: [id number]: 4Acct:[id number]/Sex: 65 / MDate of Service: 06/20/21Loc: EDAccession Number: [id number] Procedure: XR chest 1V Ordering Provider: Toshia Soto D.O. PROCEDURE: XR CHEST 1V INDICATIONS: Flu like symptoms TECHNIQUE: One view of the chest was acquired. COMPARISON: [facility] , CHEST 2 VIEW, 11/02/2017, 12:46. FINDINGS: Surgical changes and devices: None. Lungs and pleura: Bilateral patchy airspace opacity. No pleural effusions or pneumothorax. Mediastinum: Mediastinal contours appear normal. Heart size is normal. Bones and chest wall: No suspicious bony lesions. Overlying soft tissues appear unremarkable. IMPRESSION: Bilateral patchy airspace opacity. Suspect multifocal pneumonia. COVID-19 could have this appearance. Dictated by: Nate Sheppard M.D. on 06/20/2021 at 14:43 Approved by: Nate Sheppard M.D. on 06/20/2021 at 14:44 ECG Data Interpretation: Sinus tachycardia rate of 105 MI 130 QRS 88 QTC of 467. No acute ST changes. MDM Narrative Medical decision making narrative: This is a 65-year-old unvaccinated male who comes in with symptoms consistent with COVID and is COVID positive. He has pneumonia on his chest x-ray is requiring 3 L nasal cannula. Patient's markers are elevated as well. Discussed with the hospitalist who kindly accepts for admission, plan for dexamethasone and remdesivir. Patient states he does wish to be resuscitated and intubated if needed. Hospitalist did see patient here in the department. Discharge Plan Departure Patient Disposition: Admitted As Inpatient Prescriptions: No Action triamterene-hydrochlorothiazid 75 MG/50 MG tablet 0.5 tab PO QAM Qty: 0 RF: 0 meloxicam [Mobic] 7.5 MG tablet 2 tab PO HS Qty: 0 RF: 0 acetaminophen 325 mg Tablet 650 mg PO TID Qty: 60 RF: 0 omeprazole 20 mg Capsule,Delayed Release(Dr/Ec) 20 mg PO BEDTIME RF: 0 lovastatin 20 mg Tablet 20 mg PO BEDTIME RF: 0 atenolol 50 mg Tablet 50 mg PO BEDTIME RF: 0 oxycodone 5 MG tablet 5 mg PO Q3HP PRN (Reason: Pain) RF: 0 aspirin 81 mg Tablet,Delayed Release (Dr/Ec) 81 mg PO BID Qty: 60 RF: 0 Referrals: Clyde Balderas MD [Primary Care Provider] - Admit Date/Time: 06/20/21 16:01
[2021-06-20] MEDS: ACETAMINOPHEN 325 MG TABLET 650 MG PO (16:07)
[2021-06-20] MEDS: DEXAMETHASONE 10 MG/ML VIAL 6 MG IV (16:07)
[2021-06-20 16:09] LABS: C-Reactive Protein Quant 41.6 mg/dL (<1.0)
[2021-06-20 16:41] LABS: Ferritin 1480 ng/mL (18-464)
--- NOTE | 2021-06-20 18:09 | P.HP_ITS ---
History of Present Illness History of Present Illness Date Patient Seen: 06/20/21 Time Patient Seen: 13:00 Chief complaint: Thinks Poss Heat Stroke Narrative: Mr. Price is a former smoker, with PMH of HTN, HL, not vaccinated against COVID who comes in with shortness of breath and fatigue. He says for the last week he has felt generalized weakness, shortness of breath, feeling warm. He thought he had heat stroke. No abdominal pain, nausea, vomiting, diarrhea. He has not had significant coughing. He has not measured a fever. He does not have any phelgm production. No chest pain. In the ED, workup was done, his vitals were notable for O2 sat in the 80s so he was placed on nasal cannula. He did develop a fever to 100.8 and had tachypnea to the 20s. Labs notable for WBC 9.7, lymphs 9.8%, na 130, BUN 31, creatinine 1.26. COVID positive. D-dimer 1734, procal 0.5, ldh 1237. He received dexamethasone, remdesivir in the ED. He was admitted for further treatment. Family history: Father had CHF Patient History Medical History Arthritis Back pain Bilateral hip pain Former smoker GERD (gastroesophageal reflux disease) HLD (hyperlipidemia) HTN (hypertension) Kidney stone Osteoarthritis Right knee pain Sciatica Surgical History History of lumbar fusion (08/15/16) History of total left hip arthroplasty (03/18/19) History of total right hip arthroplasty Hx of arthroscopy of right knee Hx of tonsillectomy Family & Social History Social History: household members none Safety & Behavioral: Feels Safe in Current Yes Environment Been Physically Hurt or No Threatened By a Person Tobacco & Substance use: Smoking Status Former smoker alcohol intake never Substance Use Type marijuana Meds Home Medications and Allergies Home Medications Medication Instructions Recorded Confirmed Type meloxicam 7.5 mg tablet (Mobic) 2 tab PO HS #0 08/03/16 01/06/20 History triamterene 75 0.5 tab PO QAM #0 08/03/16 01/06/20 History mg-hydrochlorothiazide 50 mg tablet atenolol 50 mg tablet 50 mg PO BEDTIME 03/03/19 01/06/20 History lovastatin 20 mg tablet 20 mg PO BEDTIME 03/03/19 01/06/20 History omeprazole 20 mg capsule,delayed 20 mg PO BEDTIME 03/03/19 01/06/20 History release oxycodone 5 mg tablet 5 mg PO Q3HP PRN 03/03/19 01/06/20 History aspirin 81 mg tablet,delayed 81 mg PO BID #60 tab 03/19/19 01/02/20 Rx release acetaminophen 325 mg tablet 650 mg PO TID #60 tab 01/06/20 Rx Allergies Allergy/AdvReac Type Severity Reaction Status Date / Time Penicillins Allergy Mild FLUID Verified 06/20/21 12:18 REACTION A CHILD Review of Systems Review of Systems Narrative: 14 systems reviewed and negative aside from HPI Exam Vital Signs (past 8 hours): - 06/20/21 12:16 06/20/21 13:39 06/20/21 14:00 Temperature 97.1 F L 100.2 F H Pulse Rate 93 H 100 H 93 H Respiratory Rate 18 21 Blood Pressure 106/97 H 141/81 H Pulse Oximetry 91 84 L 92 06/20/21 14:01 06/20/21 14:30 06/20/21 15:00 Temperature 100.2 F H 100.8 F H 100.4 F H Pulse Rate 95 H 92 H 89 Respiratory Rate 17 20 25 H Blood Pressure 108/74 112/73 Pulse Oximetry 92 91 92 06/20/21 15:30 06/20/21 16:00 Temperature 100.2 F H 100.0 F H Pulse Rate 87 88 Respiratory Rate 32 H 19 Blood Pressure Pulse Oximetry 92 93 Oxygen Delivery Method Nasal Cannula Oxygen Flow Rate 3 Narrative Exam Narrative: GEN: mild respiratory distress HEENT: moist mucous membranes, PERRL NECK: trachea midline, no JVD PULM: clear bilaterally, no wheezes, rhonchi, rales ABD: soft, nontender, nondistended, no organomegaly, no rebound/guarding, normal bowel sounds EXT: warm and well perfused with no edema SKIN: scattered bruises NEURO: awake alert oriented x3, moving all extremities with no gross deficits PSYCH: pleasant, cooperative Objective Labs Result Diagrams: 06/20/21 12:37 06/20/21 12:37 Labs: Laboratory Results - last 24 hr 06/20/21 06/20/2106/20/21 12:37 12:37 13:58 WBC 9.7 RBC 5.05 Hgb 15.8 Hct 46.0 MCV 91.1 MCH 31.2 MCHC 34.3 RDW 14.2 Plt Count 324 Neut % (Auto) 85.3 H Lymph % (Auto) 9.8 L [place] % (Auto) 4.3 Eos % (Auto) 0.6 L Baso % (Auto) 0.0 Neut # (Auto) 8300 H Lymph # (Auto) 1000 L [place] # (Auto) 400 Eos # (Auto) 100 Baso # (Auto) 0 D-Dimer Sodium 130 L Potassium 3.9 Chloride 92 L Carbon Dioxide 28 BUN 31 H Creatinine 1.26 H Estimated GFR 57.3 L BUN/Creatinine Ratio 24.6 H Glucose 165 H Lactate Calcium 9.8 Ferritin Total Bilirubin 1.4 H AST 87 H ALT 49 Alkaline Phosphatase 112 Lactate Dehydrogenase C-Reactive Protein Total Protein 8.7 H Albumin 4.0 Globulin 4.7 H Albumin/Globulin Ratio 0.9 L Lipase 139 Procalcitonin SARS-CoV-2 (PCR) Positive H 06/20/21 06/20/21 06/20/21 14:57 14:57 14:57 WBC RBC Hgb Hct MCV MCH MCHC RDW Plt Count Neut % (Auto) Lymph % (Auto) [place] % (Auto) Eos % (Auto) Baso % (Auto) Neut # (Auto) Lymph # (Auto) [place] # (Auto) Eos # (Auto) Baso # (Auto) D-Dimer 1734 H Sodium Potassium Chloride Carbon Dioxide BUN Creatinine Estimated GFR BUN/Creatinine Ratio Glucose Lactate 1.9 Calcium Ferritin Total Bilirubin AST ALT Alkaline Phosphatase Lactate Dehydrogenase C-Reactive Protein Total Protein Albumin Globulin Albumin/Globulin Ratio Lipase Procalcitonin 0.50 SARS-CoV-2 (PCR) 06/20/21 14:57 WBC RBC Hgb Hct MCV MCH MCHC RDW Plt Count Neut % (Auto) Lymph % (Auto) [place] % (Auto) Eos % (Auto) Baso % (Auto) Neut # (Auto) Lymph # (Auto) [place] # (Auto) Eos # (Auto) Baso # (Auto) D-Dimer Sodium Potassium Chloride Carbon Dioxide BUN Creatinine Estimated GFR BUN/Creatinine Ratio Glucose Lactate Calcium Ferritin 1480 H Total Bilirubin AST ALT Alkaline Phosphatase Lactate Dehydrogenase 1237 H C-Reactive Protein 41.6 H Total Protein Albumin Globulin Albumin/Globulin Ratio Lipase Procalcitonin SARS-CoV-2 (PCR) Assessment & Plan Assessment & Plan narrative: Mr. Starks is a 65M with PMH HTN, HL who comes in with shortness of breath and hypoxemia found to have acute respiratory failure from COVID pneumonia. 1. Acute respiratory from COVID pneumonia -unfortunately patient is unvaccinated -hypoxemic to the 80s, COVID test positive -ordered for dexamethasone, remdesivir, day 1 is 06/20 -trend inflammatory markers -lovenox 40u sc 2. Hypertension -continue atenolol 3. Hyperlipidemia -continue lovastatin CODE: FUll Proxy: Son, Orlin Stewart DIET: Cardiac I have utilized all available immediate resources to obtain, update, or review the patient's current medications.
[2021-06-20] MEDS: REMDESIVIR 200 MG in SODIUM CHLORIDE 0.9% 210 ML 250 ML IV (19:19)
--- NOTE | 2021-06-20 23:13 | PC.NURSE ---
Admit/Evening Shift Note- Patient arrived to room via stretcher from ER. Patient able to walk on his own with steady gait from stretcher to bed. Patient alert and oriented and able to make needs known to staff. Admiyt questions done, physical assessment done, home medications reviewed, and skin check completed. Patient oriented to bed and bed controls, room, lights, phone, menu, bathroom, and call ayers/tv remote. Patient agrees to call for assistance. Continuous pulse ox in place. Safety measures in place. Call ayers and phone within reach. will continue to monitor.
[2021-06-21] VITALS (11 sets, daily range): BP systolic 99–141; BP diastolic 57–83; PULSE 60–119; RESP 13–24; TEMP 30.4–37.6; O2SAT 88–98
[2021-06-21 05:41] LABS: Blood Urea Nitrogen 28 mg/dL (9-20); Carbon Dioxide 29 mmol/L (22-32); Chloride 96 mmol/L (98-107); Estimated Glomerular Filt Rate > 60.0 mL/min (>60); Glucose 146 mg/dL (80-110); HEMOLYSIS < 15 (0-50); Potassium 3.3 mmol/L (3.4-5.1); Sodium 133 mmol/L (137-145)
[2021-06-21 05:46] LABS: D Dimer 2566 ng/mL (<230)
[2021-06-21 06:48] LABS: Add Manual Diff / Slide Review NO; Basophils Absolute Auto 0 /uL (0-100); Basophils Percent Auto 0.3 % (0-2); Eosinophils Absolute Auto 100 /uL (0-450); Eosinophils Percent Auto 1.6 % (2-4); Hematocrit 40.1 % (41-53); Hemoglobin 13.6 g/dL (13.5-17.5); Lymphocytes Absolute Auto 600 /uL (1100-4500); Lymphocytes Percent Auto 8.8 % (25-40); Monocytes Absolute Auto 400 /uL (0-900); Monocytes Percent Auto 5.8 % (3-14); Neutrophils Absolute Auto 5500 /uL (1500-7000); Neutrophils Percent Auto 83.5 % (50-75); Platelet Count 296 X10^3/uL (150-400); Red Cell Distribution Width 14.4 % (11.6-14.8); White Blood Cell Count 6.6 X10^3/uL (4.5-11.0)
[2021-06-21] MEDS: TRIAMTERENE/HCTZ 37.5/25 CAPSULE 0.5 CAP PO (09:57)
[2021-06-21] MEDS: DULOXETINE 30 MG CAPSULE PO (09:57)
[2021-06-21] MEDS: ASPIRIN EC 81 MG TABLET PO (09:57)
[2021-06-21] MEDS: ENOXAPARIN 40 MG/0.4 ML SYRINGE SUBCUT (09:59)
[2021-06-21] MEDS: DEXAMETHASONE 10 MG/ML VIAL 6 MG IV (09:59)
[2021-06-21] MEDS: atenoloL 50 MG TABLET PO (09:59)
[2021-06-21] MEDS: ACETAMINOPHEN 325 MG TABLET 650 MG PO (10:00)
[2021-06-21 10:04] LABS: Lactate Dehydrogenase 1085 U/L (313-618)
[2021-06-21 10:40] LABS: C-Reactive Protein Quant 43.5 mg/dL (<1.0)
[2021-06-21 11:31] LABS: Ferritin 1610 ng/mL (18-464)
--- NOTE | 2021-06-21 13:41 | PC.NURSE ---
Patient is on 7L of high flow humidified oxygen, he is satting between 92-94%. Lung sounds with some wheezes to the r.upper lobes and faint crackles heard. Patient is not in any distress with his breathing and is getting up independently when using the bathroom and urinal. He denies pain or discomfort.
--- NOTE | 2021-06-21 16:13 | CM.DANOTE ---
Discharge Planning/Care Management DCP: assessment: initiated: case received and IMR reviewed. COVID +/not vaccinated against COVID and here for ARF from COVID pneumonia. Admitted to care of hospitalist team yesterday later afternoon. PCP: Dr. Kevin Balderas Payer: MORE Medicare Advantage: [employer] plan Admission status: INPT. Pt resides by himself in an RV. He has been up independently in room to and from bathroom today. Son: Orlin Stewart: [phone] is his designated advocate. DCP team will follow as POC unfolds to assist with d/c issues and options. Advanced directive, confirm from FAMILY Start: 06/20/21 19:41 Freq: Q24H Status: Active Protocol: Document 06/20/21 19:41 AGW (Rec: 06/20/21 22:52 AGW [id number]) Advance Directive, confirm on record Time 19:00 Person contacted patient Copy received No CM Discharge Assessment Start: 06/21/21 16:12 Freq: Status: Active Protocol: Document 06/21/21 16:12 ITV (Rec: 06/21/21 16:13 ITV [id number]) Discharge Planning Assessment Advance Directives? Yes Advance Directives on File No History Provided By Medical Record Has Patient been admitted in last 30 No days? Prior Living Arrangements RV Household Members none
--- NOTE | 2021-06-21 16:31 | PM.PN.1 ---
Subjective Subjective Date Patient Seen: 06/21/21 Time Patient Seen: 09:00 Interval history: Today he still feels short of breath. He has not noted much change in terms of it worsening. However he is gradually going up on his oxygen requirement since his arrival, he has been increased to 7L oxygen due to low oxygen levels. Exam Vital Signs (past 8 hours): - 06/21/21 10:00 06/21/21 11:00 06/21/21 11:05 Temperature 99.7 F H Pulse Rate Respiratory Rate Blood Pressure Pulse Oximetry 88 L 92 06/21/21 12:00 Temperature 96.6 F L Pulse Rate 74 Respiratory Rate 14 Blood Pressure 105/67 Pulse Oximetry 93 Oxygen Delivery Method High Flow Nasal Cannula Oxygen Flow Rate 7 Narrative Exam Narrative: GEN: mild respiratory distress HEENT: moist mucous membranes, PERRL NECK: trachea midline, no JVD PULM: clear bilaterally, no wheezes, rhonchi, rales ABD: soft, nontender, nondistended, no organomegaly, no rebound/guarding, normal bowel sounds EXT: warm and well perfused with no edema SKIN: scattered bruises NEURO: awake alert oriented x3, moving all extremities with no gross deficits PSYCH: pleasant, cooperative Objective Labs Result Diagrams: 06/21/21 06:30 06/21/21 05:00 Labs: Laboratory Results - last 24 hr 06/20/21 06/21/21 06/21/21 14:57 05:00 05:00 WBC RBC Hgb Hct MCV MCH MCHC RDW Plt Count Neut % (Auto) Lymph % (Auto) [place] % (Auto) Eos % (Auto) Baso % (Auto) Neut # (Auto) Lymph # (Auto) [place] # (Auto) Eos # (Auto) Baso # (Auto) D-Dimer 2566 H Sodium 133 L Potassium 3.3 L Chloride 96 L Carbon Dioxide 29 BUN 28 H Creatinine 1.12 Estimated GFR > 60.0 BUN/Creatinine Ratio 25.0 H Glucose 146 H Calcium 9.0 Ferritin 1480 H Lactate Dehydrogenase C-Reactive Protein 06/21/21 06/21/21 05:00 06:30 WBC 6.6 RBC 4.40 L Hgb 13.6 Hct 40.1 L MCV 91.0 MCH 31.0 MCHC 34.0 RDW 14.4 Plt Count 296 Neut % (Auto) 83.5 H Lymph % (Auto) 8.8 L [place] % (Auto) 5.8 Eos % (Auto) 1.6 L Baso % (Auto) 0.3 Neut # (Auto) 5500 Lymph # (Auto) 600 L [place] # (Auto) 400 Eos # (Auto) 100 Baso # (Auto) 0 D-Dimer Sodium Potassium Chloride Carbon Dioxide BUN Creatinine Estimated GFR BUN/Creatinine Ratio Glucose Calcium Ferritin 1610 H Lactate Dehydrogenase 1085 H C-Reactive Protein 43.5 H PFSH Medical History Arthritis Back pain Bilateral hip pain Former smoker GERD (gastroesophageal reflux disease) HLD (hyperlipidemia) HTN (hypertension) Kidney stone Osteoarthritis Right knee pain Sciatica Surgical History History of lumbar fusion (08/15/16) History of total left hip arthroplasty (03/18/19) History of total right hip arthroplasty Hx of arthroscopy of right knee Hx of tonsillectomy Social History household members: none Smoking Status: Former smoker alcohol intake: never Assessment & Plan Assessment & Plan narrative: Mr. Starks is a 65M with PMH HTN, HL who comes in with shortness of breath and hypoxemia found to have acute respiratory failure from COVID pneumonia. 1. Acute respiratory failure from COVID pneumonia -unfortunately patient is unvaccinated -hypoxemic to the 80s, COVID test positive -ordered for dexamethasone, remdesivir, day 1 is 06/20 -trend inflammatory markers which show rising crp, ferritin, d-dimer -lovenox 40u sc -on 06/21 patient's respiratory status has slightly worsened with oxygen requirement up to 7L o2 2. Hypertension -continue atenolol 3. Hyperlipidemia -continue lovastatin CODE: FUll Proxy: Son, Orlin Stewart DIET: Cardiac I have utilized all available immediate resources to obtain, update, or review the patient's current medications. Quality VTE Deep Vein Thrombosis/Pulmonary Embolism Present on Admission: No
[2021-06-21] MEDS: REMDESIVIR 100 MG in SODIUM CHLORIDE 0.9% 230 ML 250 ML IV (17:09)
[2021-06-21] MEDS: POTASSIUM CHLORIDE 20 MEQ TAB 40 MEQ PO (19:00)
--- NOTE | 2021-06-21 19:27 | PC.NURSE ---
Addendum entered by Deborah Day R.N. 06/21/21 21:19: pt had some turkey sandwhich. pt now on heart healthy diet. Original Note: notified provider regarding pt's potassium lab value 3.3, vto for 40 PO of K, one time dose
[2021-06-21] MEDS: ATORVASTATIN 20 MG TABLET 10 MG PO (20:27)
[2021-06-21] MEDS: METOPROLOL IR 25 MG TABLET 12.5 MG PO (20:28)
[2021-06-21] MEDS: PANTOPRAZOLE DR 20 MG TABLET PO (20:28)
[2021-06-21] MEDS: MELOXICAM 7.5 MG TABLET 15 MG PO (20:33)
[2021-06-22] VITALS (11 sets, daily range): BP systolic 97–114; BP diastolic 57–72; PULSE 59–88; RESP 16–20; TEMP 35.7–36.3; O2SAT 92–94
[2021-06-22 08:12] LABS: Hematocrit 41.8 % (41-53); Hemoglobin 14.2 g/dL (13.5-17.5); Mean Corpuscular HGB Conc 34.1 % (30-36); Mean Corpuscular Hemoglobin 31.6 PG (26-34); Mean Corpuscular Volume 92.6 fL (80-100); Platelet Count 318 X10^3/uL (150-400); Red Blood Cell Count 4.51 X10^6/uL (4.5-5.9); Red Cell Distribution Width 14.7 % (11.6-14.8)
[2021-06-22 08:21] LABS: D Dimer 927 ng/mL (<230)
[2021-06-22 08:24] LABS: BUN Creatinine Ratio 40.5 (6-22); Blood Urea Nitrogen 34 mg/dL (9-20); Calcium 9.3 mg/dL (8.4-10.2); Carbon Dioxide 30 mmol/L (22-32); Chloride 102 mmol/L (98-107); Estimated Glomerular Filt Rate > 60.0 mL/min (>60); Glucose 187 mg/dL (80-110); HEMOLYSIS < 15 (0-50); Potassium 3.7 mmol/L (3.4-5.1); Sodium 137 mmol/L (137-145)
[2021-06-22 08:49] LABS: C-Reactive Protein Quant 36.2 mg/dL (<1.0)
[2021-06-22] MEDS: ENOXAPARIN 40 MG/0.4 ML SYRINGE SUBCUT (09:14)
[2021-06-22] MEDS: METOPROLOL IR 25 MG TABLET 12.5 MG PO ×2 (09:15→20:04)
[2021-06-22] MEDS: DEXAMETHASONE 10 MG/ML VIAL 6 MG IV (09:15)
[2021-06-22] MEDS: DULOXETINE 30 MG CAPSULE PO (09:15)
[2021-06-22] MEDS: ASPIRIN EC 81 MG TABLET PO (09:15)
[2021-06-22 09:45] LABS: Ferritin 2080 ng/mL (18-464)
[2021-06-22] MEDS: REMDESIVIR 100 MG in SODIUM CHLORIDE 0.9% 230 ML 250 ML IV (16:39)
--- NOTE | 2021-06-22 17:20 | PM.PN.1 ---
Subjective Subjective Date Patient Seen: 06/22/21 Time Patient Seen: 08:00 Interval history: Today he says he feels stronger. He is still short of breath. This morning his O2 was titrated down to 5L. Exam Vital Signs (past 8 hours): - 06/22/21 13:00 06/22/21 15:55 06/22/21 16:40 Temperature 96.3 F L 97.2 F L Pulse Rate 67 74 Respiratory Rate 20 20 Blood Pressure 99/72 106/66 Pulse Oximetry 94 93 93 Oxygen Delivery Method High Flow Nasal Cannula Oxygen Flow Rate 3 Narrative Exam Narrative: GEN: mild respiratory distress HEENT: moist mucous membranes, PERRL NECK: trachea midline, no JVD PULM: clear bilaterally, no wheezes, rhonchi, rales ABD: soft, nontender, nondistended, no organomegaly, no rebound/guarding, normal bowel sounds EXT: warm and well perfused with no edema SKIN: scattered bruises NEURO: awake alert oriented x3, moving all extremities with no gross deficits PSYCH: pleasant, cooperative Objective Labs Result Diagrams: 06/22/21 07:37 06/22/21 07:37 Labs: Laboratory Results - last 24 hr 06/22/21 06/22/21 06/22/21 07:37 07:37 07:37 WBC 6.0 RBC 4.51 Hgb 14.2 Hct 41.8 MCV 92.6 MCH 31.6 MCHC 34.1 RDW 14.7 Plt Count 318 D-Dimer 927 H Sodium 137 Potassium 3.7 Chloride 102 Carbon Dioxide 30 BUN 34 H Creatinine 0.84 Estimated GFR > 60.0 BUN/Creatinine Ratio 40.5 H Glucose 187 H Calcium 9.3 Ferritin 2080 H C-Reactive Protein 36.2 H PFSH Medical History Arthritis Back pain Bilateral hip pain Former smoker GERD (gastroesophageal reflux disease) HLD (hyperlipidemia) HTN (hypertension) Kidney stone Osteoarthritis Right knee pain Sciatica Surgical History History of lumbar fusion (08/15/16) History of total left hip arthroplasty (03/18/19) History of total right hip arthroplasty Hx of arthroscopy of right knee Hx of tonsillectomy Social History household members: none Smoking Status: Former smoker alcohol intake: never Assessment & Plan Assessment & Plan narrative: Mr. Starks is a 65M with PMH HTN, HL who comes in with shortness of breath and hypoxemia found to have acute respiratory failure from COVID pneumonia. 1. Acute respiratory failure from COVID pneumonia -unfortunately patient is unvaccinated -initially hypoxemic to the 80s, COVID test positive -ordered for dexamethasone, remdesivir, day 1 is 06/20 -trend inflammatory markers which show rising crp, ferritin, d-dimer -lovenox 40u sc -on 06/21 patient's respiratory status has slightly worsened with oxygen requirement up to 7L o2, but 06/22 improved and started titrating down oxygen 2. Hypertension -continue atenolol 3. Hyperlipidemia -continue lovastatin CODE: FUll Proxy: Son, Orlin Stewart DIET: Cardiac I have utilized all available immediate resources to obtain, update, or review the patient's current medications. Quality VTE Deep Vein Thrombosis/Pulmonary Embolism Present on Admission: No
[2021-06-22] MEDS: ATORVASTATIN 20 MG TABLET 10 MG PO (20:03)
[2021-06-22] MEDS: PANTOPRAZOLE DR 20 MG TABLET PO (20:03)
[2021-06-22] MEDS: MELOXICAM 7.5 MG TABLET 15 MG PO (20:03)
[2021-06-23 05:18] LABS: Hemoglobin 13.2 g/dL (13.5-17.5); Mean Corpuscular HGB Conc 33.1 % (30-36); Mean Corpuscular Hemoglobin 30.6 PG (26-34); Mean Corpuscular Volume 92.5 fL (80-100); Platelet Count 352 X10^3/uL (150-400); Red Blood Cell Count 4.32 X10^6/uL (4.5-5.9); Red Cell Distribution Width 14.6 % (11.6-14.8); White Blood Cell Count 12.1 X10^3/uL (4.5-11.0)
[2021-06-23 05:20] VITALS: BP 123/76; PULSE 75; RESP 22; TEMP 36.5; O2SAT 93
[2021-06-23 05:26] LABS: BUN Creatinine Ratio 47.3 (6-22); Blood Urea Nitrogen 43 mg/dL (9-20); Carbon Dioxide 31 mmol/L (22-32); Chloride 101 mmol/L (98-107); Estimated Glomerular Filt Rate > 60.0 mL/min (>60); Glucose 197 mg/dL (80-110); HEMOLYSIS < 15 (0-50); Sodium 139 mmol/L (137-145)
[2021-06-23 08:25] VITALS: BP 115/69; PULSE 67; RESP 18; TEMP 36.5; O2SAT 91
[2021-06-23 08:28] VITALS: O2SAT 91; O2SAT 96
[2021-06-23] MEDS: DEXAMETHASONE 10 MG/ML VIAL 6 MG IV (10:40)
[2021-06-23] MEDS: ENOXAPARIN 40 MG/0.4 ML SYRINGE SUBCUT (10:41)
[2021-06-23] MEDS: ACETAMINOPHEN 325 MG TABLET 650 MG PO (10:41)
[2021-06-23] MEDS: DULOXETINE 30 MG CAPSULE PO (10:41)
[2021-06-23] MEDS: ASPIRIN EC 81 MG TABLET PO (10:41)
[2021-06-23] MEDS: METOPROLOL IR 25 MG TABLET 12.5 MG PO (10:43)
--- NOTE | 2021-06-23 11:46 | CM.DPC ---
Addendum entered by Disha Olivares R.N. 06/23/21 11:59: Patient could potentially need home oxygen, his oxygen saturations went down upon exertion, R.T. is working with him. Original Note: DCP Cont: Discussed patient during team rounds. He is not off of his oxygen, and is expected to discharge home today. Family should be picking patient up. P: Patient is supposed to discharge home today. Disha Olivares RN/Ingredient Scaler
[2021-06-23 12:10] VITALS: BP 102/57; PULSE 76; RESP 18; TEMP 36.6; O2SAT 91
--- NOTE | 2021-06-23 14:16 | PM.DS.1 ---
History of Present Illness History of Present Illness Chief complaint: Thinks Poss Heat Stroke Narrative: Mr. Price is a former smoker, with PMH of HTN, HL, not vaccinated against COVID who comes in with shortness of breath and fatigue. He says for the last week he has felt generalized weakness, shortness of breath, feeling warm. He thought he had heat stroke. No abdominal pain, nausea, vomiting, diarrhea. He has not had significant coughing. He has not measured a fever. He does not have any phelgm production. No chest pain. In the ED, workup was done, his vitals were notable for O2 sat in the 80s so he was placed on nasal cannula. He did develop a fever to 100.8 and had tachypnea to the 20s. Labs notable for WBC 9.7, lymphs 9.8%, na 130, BUN 31, creatinine 1.26. COVID positive. D-dimer 1734, procal 0.5, ldh 1237. He received dexamethasone, remdesivir in the ED. He was admitted for further treatment. Family history: Father had CHF Discharge Providers Provider Date of admission: 06/20/21 16:01 Discharge Date: 06/23/21 Primary care physician: Clyde Balderas MD Discharge provider: Amor Banerjee MD Summary Hospital Course Discharge Diagnosis: 1. Acute respiratory failure from COVID pneumonia 2. Hypertension 3. Hyperlipidemia Hospital Course: Mr. Starks is a 65M with PMH HTN, HL who comes in with shortness of breath and hypoxemia found to have acute respiratory failure from COVID pneumonia. He required oxygen to maintain his sats about the 80s. He was started on dexamethasone and remdesivir. He had good response to these treatments. On day of discharge his oxygen saturation did well at rest and dipped slightly to the 80s with activity and quickly recovered with rest. He felt much improved. He was discharged home and ordered for oxygen as needed with activity. He was encouraged to receive the COVID vaccine once his symptoms resolved, and he was encouraged to maintain isolated or masked while still having symptoms. Exam Vital Signs (past 8 hours): Oxygen Delivery Method Room Air Oxygen Flow Rate 0 Narrative Exam Narrative: GEN: no acute distress HEENT: moist mucous membranes, PERRL NECK: trachea midline, no JVD PULM: clear bilaterally, no wheezes, rhonchi, rales ABD: soft, nontender, nondistended, no organomegaly, no rebound/guarding, normal bowel sounds EXT: warm and well perfused with no edema SKIN: scattered bruises NEURO: awake alert oriented x3, moving all extremities with no gross deficits PSYCH: pleasant, cooperative Objective Labs Result Diagrams: 06/23/21 04:55 06/23/21 04:55 [facility] Medical History Arthritis Back pain Bilateral hip pain Former smoker GERD (gastroesophageal reflux disease) HLD (hyperlipidemia) HTN (hypertension) Kidney stone Osteoarthritis Right knee pain Sciatica Surgical History History of lumbar fusion (08/15/16) History of total left hip arthroplasty (03/18/19) History of total right hip arthroplasty Hx of arthroscopy of right knee Hx of tonsillectomy Social History household members: none Smoking Status: Former smoker alcohol intake: never Discharge Plan Discharge Plan Patient Disposition: Home Provider Discharge Comment: Mr. Starks came in with shortness of breath. He was found to have COVID pneumonia. He improved with treatment. He was feeling well off oxygen on day of discharge. He should try to be isolated for the next week. Once he is feeling completely back to normal he can get a COVID vaccination to help prevent getting reinfected. Discharge orders & Medications Prescriptions: Continued triamterene-hydrochlorothiazid 75 MG/50 MG tablet 0.5 tab PO QAM Qty: 0 RF: 0 meloxicam [Mobic] 7.5 MG tablet 2 tab PO HS Qty: 0 RF: 0 omeprazole 20 mg Capsule,Delayed Release(Dr/Ec) 20 mg PO BEDTIME RF: 0 lovastatin 20 mg Tablet 20 mg PO BEDTIME RF: 0 atenolol 50 mg Tablet 50 mg PO BEDTIME RF: 0 acetaminophen 325 mg tablet 650 mg PO PRN (Reason: fever) RF: 0 aspirin 81 mg tablet,delayed release (DR/EC) 81 mg PO DAILY RF: 0 duloxetine 30 mg Capsule,Delayed Release(Dr/Ec) 30 mg PO DAILY RF: 0 Follow up/Referrals: Clyde Balderas MD [Primary Care Provider] - Visit Report/Discharge Packet Instructions: DI for Pneumonia -- Adult, DI for COVID-19 (Suspected or Confirmed ), COVID-19: Protecting Yourself When You're at High Risk, About the COVID-19 Vaccine Discharge Data Primary Care Provider: Clyde Balderas VTE Deep Vein Thrombosis/Pulmonary Embolism Present on Admission: No
[2021-06-23 14:59] VITALS: O2SAT 92
[2021-06-23] MEDS: REMDESIVIR 100 MG in SODIUM CHLORIDE 0.9% 230 ML 250 ML IV (16:31)
[2021-06-23 17:17] VITALS: BP 119/70; PULSE 77; RESP 25; TEMP 36.6; O2SAT 91
--- NOTE | 2021-06-23 18:18 | PC.NURSE ---
Discharge Note- Patient discharged home. Discharge informations and education reviewed with patient and signed. IV line removed and bandage applied. Tele monitor removed. Patient left via wheelchair with all personal belongings to sons car waiting in ER parking lot.
== END 2021-06-23 18:20 | disposition home or self-care (01) | DRG 177 ==
LOC: ED 15:19 → AC 16:02
PROVIDERS: Admitting Provider Internal Medicine; Emergency Provider Emergency Medicine; PCP Internal Medicine; Referring Provider Emergency Medicine; Visit Provider Internal Medicine
DX: U07.1 COVID-19 (principal); J12.82 Pneumonia due to coronavirus disease 2019; J96.01 Acute respiratory failure with hypoxia; I10 Essential (primary) hypertension; K21.9 Gastro-esophageal reflux disease without esophagitis; E78.5 Hyperlipidemia, unspecified; Z87.891 Personal history of nicotine dependence
CPT/HCPCS: 36415; 71045; 80048; 80053; 82728; 83605; 83615; 83690; 84145; 85025; 85027; 85379; 86140; 87040; 87635; 93005; 94618; 94762; 96361; 96375; 99285; C9803; J1100; J1650